=== PATIENT | male | born 1965 | race Caucasian/White ===

== ENCOUNTER 2016-07-26 19:05 | Emergency (ER) | payer BC ==
[~2016-07-26] VITALS: Ht 172.7 cm; Wt 78.0 kg
[~2016-07-26 19:05] MED LIST: MULTTAB58 PO; TRAM-10 PO; ZNTT/150 PO; [UNRECOGNIZED DRUG - OTHER] PO
[2016-07-26 19:11] VITALS: TEMP 36.5; Ht 172.7 cm; Wt 78.0 kg
[2016-07-26] MEDS ORDERED: IBUP-1451 PO (19:15)
[2016-07-26] MEDS ORDERED: OXYCODONE HCL IR 5 MG TAB (IMMEDIATE RELEASE) PO STA (19:43)
--- NOTE | 2016-07-26 20:22 | DIAGNOSTIC IMAGING REPORT ---
LEFT KNEE 3 VIEWS, LEFT TIBIA/FIBULA 2 VIEWS ROUTINE CLINICAL HISTORY: Left lateral knee pain s/p log striking leg COMPARISON STUDY: None. FINDINGS: Mild lateral soft tissue swelling at the left distal thigh/knee. No fracture or dislocation within the left knee or left lower leg. A few soft tissue calcifications medial to the distal femur may be due to old trauma. No knee effusion. No radiopaque foreign bodies. IMPRESSION: No fractures within the left knee or left lower leg Electronically signed by: Remy French M.D. 07/26/2016 8:20 PM Dictated Date/Time: 07/26/2016 8:18 PM
[2016-07-26] MEDS ORDERED: OXYC1TAB3 PO (20:32)
[2016-07-26] MEDS ORDERED: OXYCODONE IR HOME PACK PO STA (20:34)
--- NOTE | 2016-07-26 20:34 | EMERGENCY ROOM VISIT NOTE ---
History First contact with patient: 19:37 Chief Complaint: LEG PAIN,LEG INJURY Stated Complaint: I HAD A PIECE OF WOOD HIT MY LEFT LEG History of Present Illness The patient is a 50 year old male who presents to the Emergency Room via private vehicle accompanied by female with complaints of "I had a piece of wood hit my left leg". Patient states that earlier today around 5 PM he was at home stacking firewood when a piece fell off the top and fell roughly 6 feet striking him on the left lateral knee. He notes pain immediately. This did not break his pants or the skin of his leg. He rates the left lateral knee pain as a 7-8/10. Pain is worse with walking. He can axial load. He denies any numbness or tingling in the distal extremity. He took 800 mg of ibuprofen at 1 PM. Review of Systems A complete 6-point Review of Systems was discussed with the patient, with pertinent positives and negatives listed in the History of Present Illness. All remaining Review of Systems questions can be considered negative unless otherwise specified. Past Medical/Surgical History Back surgery, rotator cuff surgery Family History Cancer Social History Smoking Status: Never Smoker Housing Status: lives with family Social History: Patient lives with parents. He admits to tobacco use but denies alcohol use. Current/Historical Medications Scheduled Multiple Vitamin (Multivitamin), 1 TAB PO DAILY Scheduled PRN Ibuprofen Tab (Motrin), 800 MG PO Q8H PRN for Pain Oxycodone Ir (Roxicodone Ir), 1-2 TAB PO Q4H PRN for Pain Allergies Coded Allergies: Cephalexin (Unverified Allergy, Unknown, HIVES, 07/26/16) Physical Exam Vital Signs Date Time Temp Pulse Resp B/P Pulse Ox O2 Delivery O2 Flow Rate FiO2 07/26/16 19:11 36.5 84 20 142/93 97 Room Air Physical Exam VITAL SIGNS - Vital signs and nursing notes were reviewed. Patient is afebrile , slightly hypertensive at 142/93, non-tachycardic and is saturating well on room air at 97%. GENERAL -50-year-old male appearing his stated age who is in no acute distress. Communicates well with provider and answers questions appropriately. SKIN - Without rashes. There is mild edema of the left lateral knee. Skin overlying the left lower leg is soft, and is non-tense. HEAD - NC/AT. EXTREMITIES - No clubbing or peripheral cyanosis. No pretibial edema present. Patient is vascularly intact in the left lower extremity. There is tenderness to palpation overlying the left lateral inferior portion of the knee. Mild soft tissue swelling noted here, with tenderness to palpation overlying the lateral roberson region to the mid roberson. No evidence of compartment syndrome. The calf is easily compressible and is not tense. No bony tenderness overlying the roberson. Full range of motion of the left knee, left ankle and left foot. Full sensation intact in the left foot. Patient is vascularly intact. Skin is intact. +5/5 strength noted in UE/LE bilaterally. No left hip tenderness or left thigh tenderness. NEUROLOGIC - Sensory intact to light touch throughout. Medical Decision & Procedures ER Provider Diagnostic Interpretation: LEFT KNEE 3 VIEWS, LEFT TIBIA/FIBULA 2 VIEWS ROUTINE CLINICAL HISTORY: Left lateral knee pain s/p log striking leg COMPARISON STUDY: None. FINDINGS: Mild lateral soft tissue swelling at the left distal thigh/knee. No fracture or dislocation within the left knee or left lower leg. A few soft tissue calcifications medial to the distal femur may be due to old trauma. No knee effusion. No radiopaque foreign bodies. IMPRESSION: No fractures within the left knee or left lower leg Electronically signed by: Remy French M.D. 07/26/2016 8:20 PM Dictated Date/Time: 07/26/2016 8:18 PM Medications Administered Medications (Trade) Dose Ordered Sig/Shanice Route Start Time Stop Time Status Last Admin Dose Admin Oxycodone HCl (Roxicodone Immediate Rel Tab) 5 mg NOW STAT PO 07/26/16 19:43 07/26/16 19:44 DC 07/26/16 20:31 5 MG Medical Decision Patient was seen and evaluated as above. After obtaining a thorough history and physical examination radiographs of the left knee and left roberson were obtained secondary to subjective and objective examination findings. He was given 1, 5 mg tablet of OxyIR for his pain. He was given ice pack to the left knee. It appears that he has a contusion of the left knee but there was concern for potential underlying bone abnormality. No evidence of compartment syndrome on exam. He was able to axial load with full range of motion of the left lower extremity. Radial graph results as above. I agree with radiologist findings. Patient was verbally provided these results and educated upon today' s findings. He was educated upon management and fitted with a knee immobilizer for the left leg. He declined crutches noting that he had some at home. He is to remain nonweightbearing and to call the orthopedic surgeon first thing Thursday morning to schedule follow-up. A prescription for OxyIR was sent to his pharmacy. No red flags were identified in the [place] drug monitoring program. He is to follow-up with orthopedics regarding the likely soft tissue contusion, but he was educated upon the chance for occult fracture. He was educated upon management, and questions answered prior to discharge, and was discharged home in good condition. In the evaluation and treatment of this patient, the following differential diagnoses were considered: Patellar Fracture, Tibial Plateau Fracture, Distal Femur Fracture, ACL Injury, PCL Injury, Collateral Ligament Injury, Pes Anserine Bursitis, Maisonneuve Fracture. Impression Primary Impression: Leg pain, left Departure Information Dispostion Home / Self-Care Condition GOOD Prescriptions Oxycodone Ir (Roxicodone Ir) 5 Mg Tab 1-2 TAB PO Q4H Y for Pain, #15 TAB For Initial Treatment Prov: Vimal Mcleod PA-C 07/26/16 Referrals No Doctor, Assigned (PCP) Nikos Ramirez,Natalia.O. Patient Instructions ED Compartment Syndrome At Risk For, My [facility] Additional Instructions You have been treated in the Emergency Department for Knee Pain. You have received pain medicine in the emergency department which impairs your ability to operate a vehicle. It is illegal for you to drive after receiving these medicines. You have been prescribed Oxy IR to be used for pain control. This is a narcotic medication. You cannot drive or consume alcohol while on this medicine. This medicine should only be used for pain that cannot be controlled with over-the- counter pain medicines. Please consider taking this with a stool softener to help with constipation. For pain control, you can use the following [id number] medicines (if >12 yo): - Regular strength (325mg/tab) Tylenol (acetaminophen) 2 tabs every 4-6 hours as needed. Do not exceed 12 tablets in a 24 hour period. Avoid taking more than 4 grams (4000 mg) of Tylenol per day. This includes any other sources of acetaminophen you may take on a regular basis. - Regular strength (200 mg/tab) Advil (ibuprofen) 1-2 tabs every 4-6 hours as needed. Do not exceed a dose of 3200 mg per day. If this is a recent injury (<24 hrs), ice can be applied to the area of pain for the first 3 days to help decrease pain and inflammation. Ice massages can be performed by freezing water in a paper cup, peeling back the cup to expose the ice and then massaging over the affected area. You have been provided the number for an Orthopaedic Surgeon. You should call this number as soon as possible to establish a follow-up visit from today's Emergency Department visit. (Dr. Ramirez) Keep the knee brace in place until cleared by Orthopedics. Use the crutches to keep ALL weight off of the knee until weight bearing is tolerable. Return to the Emergency Department if your current symptoms worsen despite treatment course outlined above. Please return to the emergency department with any new/concerning symptoms.
[2016-07-26 21:08] VITALS: BP 116/86; PULSE 73; O2SAT 98
== END 2016-07-26 21:08 | disposition home or self-care (01) ==
LOC: C.EDB 19:06 → C.EDD 21:08
DX: M79.605 Pain in left leg (principal); W22.8XXA Striking against or struck by other objects, initial encounter; F17.200 Nicotine dependence, unspecified, uncomplicated

== ENCOUNTER → 2016-09-22 | Outpatient (CLI) | payer BC ==
[~2016-09-22] MED LIST changes: +IBUP-1451 PO; +KETO10TA PO; +MECL1TAB42 PO; +NAPR1TAB9 PO; +OXYC1TAB3 PO; -ZNTT/150 PO; -[UNRECOGNIZED DRUG - OTHER] PO
== END | disposition home or self-care (01) ==
LOC: C.CPL 09:42
PROVIDERS: ATTEND Orthopaedic Surgery
DX: S46.811D Strain of other muscles, fascia and tendons at shoulder and upper arm level, right arm, subsequent encounter (principal); X58.XXXA Exposure to other specified factors, initial encounter

== ENCOUNTER 2017-02-06 16:27 | Emergency (ER) | payer BC ==
[~2017-02-06] VITALS: Ht 170.2 cm; Wt 86.2 kg
[~2017-02-06 16:27] MED LIST changes: -KETO10TA PO; -MECL1TAB42 PO; -NAPR1TAB9 PO; -OXYC1TAB3 PO; -TRAM-10 PO
[2017-02-06 16:29] VITALS: Ht 170.2 cm; Wt 86.2 kg
[2017-02-06] MEDS ORDERED: NAPR1TAB9 PO (16:45)
[2017-02-06] MEDS ORDERED: KETOROLAC TROMETHAMINE 60 MG/2 ML VIAL IM STA (16:46)
[2017-02-06] MEDS ORDERED: KETO10TA PO (16:48)
[2017-02-06 17:23] VITALS: BP 132/81; PULSE 66; TEMP 36.3; O2SAT 98
--- NOTE | 2017-02-06 17:50 | EMERGENCY ROOM VISIT NOTE ---
History Report prepared by Vidhi: Reno Martin Under the Supervision of: Dr. Sung Ellis D.O. First contact with patient: 16:38 Chief Complaint: SHOULDER PAIN Stated Complaint: R SHOULDER PAIN History of Present Illness The patient is a 51 year old male who presents to the Emergency Room with complaints of constant right shoulder pain for the past three weeks. He states that the pain is going down his right arm. The patient states that he had shoulder surgery done in September, and he last saw his surgeon a week ago. He states that he is supposed to get an MRI on the , and he is currently taking Aleve for the pain. The patient additionally states that he has been having some weakness in that arm. Source of History: patient Onset: three weeks ago Position: shoulder (right) Timing: constant Associated Symptoms: + numbness Review of Systems See HPI for pertinent positives & negatives. A total of 10 systems reviewed and were otherwise negative. Past Medical & Surgical Surgical Problems: (1) H/O shoulder surgery Family History Cancer Social History Smoking Status: Never Smoker Housing Status: lives with family Occupation Status: employed Current/Historical Medications Scheduled Multiple Vitamin (Multivitamin), 1 TAB PO DAILY Naproxen (Aleve), 220 MG PO DIRECTED Scheduled PRN Ketorolac (Toradol), 10 MG PO Q6H PRN for Pain Allergies Coded Allergies: Cephalexin (Unverified Allergy, Unknown, HIVES, 07/26/16) Physical Exam Vital Signs Date Time Temp Pulse Resp B/P (MAP) Pulse Ox O2 Delivery O2 Flow Rate FiO2 02/06/17 17:23 36.3 66 20 132/81 98 02/06/17 17:07 66 20 132/81 98 Room Air 02/06/17 16:29 36.3 66 20 137/87 98 Room Air Physical Exam CONSTITUTIONAL/VITAL SIGNS: Reviewed / noted above. GENERAL: Non-toxic in appearance. INTEGUMENTARY: Warm, dry, and [place]. HEAD: Normocephalic. EYES: without scleral icterus or trauma. ENT/OROPHARYNX: clear and moist. LYMPHADENOPATHY/NECK: Is supple without lymphadenopathy or meningismus. RESPIRATORY: Lungs clear and equal. CARDIOVASCULAR: Regular rate and rhythm. GI/ABDOMEN: Soft and nontender. No organomegaly or pulsatile mass. No rebound or guarding. Normal bowel sounds. EXTREMITIES: Neurovascularly intact in the right upper extremity. Right shoulder does not reveal any increase in warmth, swelling, or visible abnormalities. Increased tenderness to palpation over the posterior aspect of the right shoulder. Warm and well perfused. BACK: No CVA tenderness. NEUROLOGICAL: Intact without focal deficits. PSYCHIATRIC: normal affect. MUSCULOSKELETAL: Normally developed with good muscle tone. Medical Decision & Procedures Medications Administered Medications (Trade) Dose Ordered Sig/Shanice Route Start Time Stop Time Status Last Admin Dose Admin Ketorolac Tromethamine (Toradol Inj) 60 mg NOW STAT IM 02/06/17 16:46 02/06/17 16:47 DC 02/06/17 16:52 60 MG ED Course 1638: Previous medical records were reviewed. The patient was evaluated in room A2. A complete history and physical examination was performed. 1646: I gave the patient Toradol Inj 60mg IM, he will be ready for discharge home. Medical Decision Differential diagnoses include: strain, infection, arthritis, chronic pain, post -surgical pain syndrome. This is a 51-year-old male who presents to the ED with a chief complaint of right shoulder pain. The patient had right shoulder surgery in September. This was done by Dr. Ramirez. He states that he had relief of the pain that he is experiencing now but then his pain came back a few weeks ago. He saw Dr. Ramirez a week ago and has had an MRI of his shoulder scheduled for the 11th of this month, 10 days from now. He came in for pain relief. He is currently taking Aleve. The patient's exam was relatively unremarkable. There is no obvious inflammatory findings or findings suggesting infection. He has no obvious neurovascular changes. The patient's symptoms were treated with Toradol IM. He was discharged on Toradol. He was to follow-up with his surgeon. Medication Reconcilliation Current Medication List: was personally reviewed by me Blood Pressure Screening Patient's blood pressure: Normal blood pressure Impression Primary Impression: Shoulder pain, right Scribe Attestation The scribe's documentation has been prepared under my direction and personally reviewed by me in its entirety. I confirm that the note above accurately reflects all work, treatment, procedures, and medical decision making performed by me. Departure Information Dispostion Home / Self-Care Prescriptions Ketorolac (Toradol) 10 Mg Tab 10 MG PO Q6H Y for Pain, #20 TAB Prov: Sung Ellis D.O. 02/06/17 Referrals No Doctor, Assigned (PCP) Forms HOME CARE DOCUMENTATION FORM, IMPORTANT VISIT INFORMATION Patient Instructions My [facility] Additional Instructions Toradol as prescribed for pain. Follow-up with your doctor for recheck.
== END 2017-02-06 17:24 | disposition home or self-care (01) ==
LOC: C.EDB 16:28 → C.EDA 17:24
DX: M25.511 Pain in right shoulder (principal); Z80.9 Family history of malignant neoplasm, unspecified

== ENCOUNTER 2017-08-02 10:35 | Emergency (ER) | payer BC ==
[~2017-08-02] VITALS: Ht 172.7 cm; Wt 76.8 kg
[~2017-08-02 10:35] MED LIST changes: -IBUP-1451 PO; -MULTTAB58 PO; +TRAM-10 PO
[2017-08-02 10:54] VITALS: TEMP 36.6; Ht 172.7 cm; Wt 76.8 kg
[2017-08-02] MEDS ORDERED: SODIUM CHLORIDE 0.9% 1000ML 1,000 ML IV STA (11:20)
--- NOTE | 2017-08-02 11:26 | EMERGENCY ROOM VISIT NOTE ---
History First contact with patient: 11:10 Chief Complaint: DIZZY Stated Complaint: LIGHT HEADED Nursing Triage Summary: around 1030 patient states he was working at [employer] and became lightheaded. "They checked my blood pressure and that it was high and they thought I should come in and get checked out." History of Present Illness The patient is a 51 year old male who presents to the Emergency Room with complaints of dizziness which occurred at work. 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 He states he told nursing staff who checked his blood pressure and reported an elevated blood pressure. The patient states he was told at that point to come and be evaluated. 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 The incident occurred at approximately 1030, the patient states he is feeling significantly better, however slightly dizzy at this time. He does not have any history of anything similar happening in the past. He does have some chronic right shoulder pain which has been flaring up recently. He denies any associated symptoms including chest pain, dyspnea, headache, nausea, vomiting, vertigo, tinnitus, recent illness, upper respiratory infection, diarrhea, or constipation. He does not report a history of hypertension. Review of Systems A complete 10 point review of systems was reviewed with the patient with pertinent positives and negatives as per history of present illness. All else were negative. Past Medical/Surgical History Surgical Problems: (1) H/O shoulder surgery Family History Cancer Social History Smoking Status: Never Smoker Housing Status: lives with family Occupation Status: employed Current/Historical Medications Scheduled Multivitamin (Multivitamin), 1 TAB PO DAILY Scheduled PRN Ibuprofen (Ibuprofen), 800 MG PO UD PRN for Pain Physical Exam Vital Signs Date Time Temp Pulse Resp B/P (MAP) Pulse Ox O2 Delivery O2 Flow Rate FiO2 08/02/17 12:47 68 128/80 98 Room Air 74 125/92 85 137/98 08/02/17 11:33 73 08/02/17 11:04 75 18 128/97 95 Room Air 08/02/17 10:54 36.6 71 20 152/89 99 Room Air Physical Exam VITALS: Vitals are noted on the nurse's note and reviewed by myself. Vital signs stable. GENERAL: This is a 51-year-old white male, in no acute distress, nondiaphoretic , well-developed well-nourished. SKIN: The skin was without rashes, erythema, edema, or bruising. There is no tenting of the skin. Capillary reflex less than 2 seconds. HEAD: Normocephalic atraumatic. EARS: External auditory canals clear, tympanic membranes pearly dorado without erythema or effusion bilaterally. EYES: Pupils equal round and reactive to light and accommodation. Conjunctivae without injection, sclerae without icterus. Extraocular movements intact. NOSE: Patent, turbinates without inflammation or discharge. No sinus tenderness. MOUTH: Mucous membranes moist. Tonsils are not enlarged. Pharynx without erythema or exudate. Uvula midline. Airway patent. Tongue does not deviate. NECK: Supple without nuchal rigidity. No lymphadenopathy. No thyromegaly. Cervical spine is nontender. No JVD. HEART: Regular rate and rhythm without murmurs gallops or rubs. LUNGS: Clear to auscultation bilaterally without wheezes, rales or rhonchi. No dullness to percussion. No retractions or accessory muscle use. ABDOMEN: Positive bowel sounds x 4. Normal tympanic percussion. Soft, nontender, without masses or organomegaly. Heart sign negative. No guarding or rebound tenderness. No CVA tenderness bilaterally. MUSCULOSKELETAL: No muscle atrophy, erythema, or edema noted. Full range of motion without joint tenderness in all extremities. No tenderness to palpation. Normal gait. Strength 5/5 throughout. NEURO: Patient was alert and oriented to person place and time. Cerebellar function in tact. Normal sensation to light and sharp touch. Deep tendon reflexes 2+ throughout. No focal neurological deficits. Medical Decision & Procedures ER Provider Diagnostic Interpretation: CHEST 2 VIEWS ROUTINE CLINICAL HISTORY: dizziness COMPARISON STUDY: 07/02/2012 FINDINGS: The cardiac and mediastinal contours are normal. There is no evidence of focal pulmonary consolidation. There is no evidence of failure. No pleural effusions are visualized.[ IMPRESSION: No active disease in the chest. Electronically signed by: Toñito Magallanes M.D. 08/02/2017 11:53 AM Dictated Date/Time: 08/02/2017 11:52 AM Laboratory Results 08/02/17 11:30 Red Blood Count 4.81, Mean Corpuscular Volume 87.3, Mean Corpuscular Hemoglobin 30.6, Mean Corpuscular Hemoglobin Concent 35.0, Mean Platelet Volume 9.9, Neutrophils (%) (Auto) 74.7, Lymphocytes (%) (Auto) 17.5, Monocytes (%) (Auto) 6.4, Eosinophils (%) (Auto) 0.9, Basophils (%) (Auto) 0.1, Neutrophils # (Auto) 5.23, Lymphocytes # (Auto) 1.23, Monocytes # (Auto) 0.45, Eosinophils # (Auto) 0.06, Basophils # (Auto) 0.01 08/02/17 11:30 Test 08/02/17 11:30 White Blood Count 7.01 K/uL (4.8-10.8) Red Blood Count 4.81 M/uL (4.7-6.1) Hemoglobin 14.7 g/dL (14.0-18.0) Hematocrit 42.0 % (42-52) Mean Corpuscular Volume 87.3 fL (80-100) Mean Corpuscular Hemoglobin 30.6 pg (25-34) Mean Corpuscular Hemoglobin Concent 35.0 g/dl (32-36) Platelet Count 217 K/uL (130-400) Mean Platelet Volume 9.9 fL (7.4-10.4) Neutrophils (%) (Auto) 74.7 % Lymphocytes (%) (Auto) 17.5 % Monocytes (%) (Auto) 6.4 % Eosinophils (%) (Auto) 0.9 % Basophils (%) (Auto) 0.1 % Neutrophils # (Auto) 5.23 K/uL (1.4-6.5) Lymphocytes # (Auto) 1.23 K/uL (1.2-3.4) Monocytes # (Auto) 0.45 K/uL (0.11-0.59) Eosinophils # (Auto) 0.06 K/uL (0-0.5) Basophils # (Auto) 0.01 K/uL (0-0.2) RDW Standard Deviation 42.5 fL (36.4-46.3) RDW Coefficient of Variation 13.3 % (11.5-14.5) Immature Granulocyte % (Auto) 0.4 % Immature Granulocyte # (Auto) 0.03 K/uL (0.00-0.02) Prothrombin Time 9.9 SECONDS (9.0-12.0) Prothromb Time International Ratio 0.9 (0.9-1.1) Activated Partial Thromboplast Time 24.0 SECONDS (21.0-31.0) Partial Thromboplastin Ratio 0.9 Anion Gap 7.0 mmol/L (3-11) Est Creatinine Clear Calc Drug Dose 107.0 ml/min Estimated GFR () 120.5 Estimated GFR (Non- 104.0 BUN/Creatinine Ratio 8.2 (10-20) Calcium Level 8.9 mg/dl (8.5-10.1) Total Bilirubin 0.3 mg/dl (0.2-1) Aspartate Amino Transf (AST/SGOT) 28 U/L (15-37) Alanine Aminotransferase (ALT/SGPT) 35 U/L (12-78) Alkaline Phosphatase 64 U/L (45-117) Total Protein 6.9 gm/dl (6.4-8.2) Albumin 4.1 gm/dl (3.4-5.0) Globulin 2.8 gm/dl (2.5-4.0) Albumin/Globulin Ratio 1.5 (0.9-2) Medications Administered Medications (Trade) Dose Ordered Sig/Shanice Route Start Time Stop Time Status Last Admin Dose Admin Sodium Chloride 1,000 ml @ 999 mls/hr Q1H1M STAT IV 08/02/17 11:20 08/02/17 12:20 DC 08/02/17 11:30 999 MLS/HR ECG Per My Interpretation Indication: weakness Rate (beats per minute): 79 Rhythm: normal sinus Findings: no acute ischemic change, no ectopy Comparison ECG Date: no prior available ED Course The patient was seen and evaluated as above. IV access obtained, labs drawn. EKG ordered and performed. Chest x-ray performed. This was reviewed by myself and radiologist as above. The patient was given 1 L normal saline solution bolus for his symptoms. The patient was reassessed and is feeling better. Orthostatic vital signs performed. I discussed the case with Dr. Hayden. Discharge instructions reviewed, and the patient was discharged home in good condition. 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 The patient states he has had similar symptoms in the past, and negative workups have always been performed. He for any cardiac history. He states his blood pressure was checked at [facility] and noted to be slightly elevated approximately 160/90, so he was encouraged to come to the emergency department for evaluation. While here in the emergency department, the patient is feeling better, however continues to have some degree of dizziness. He was given 1 L normal saline solution and workup was performed as above. No significant lab, EKG, or imaging abnormalities noted. The patient's orthostatic vital signs were negative for significant acute change. The patient's symptoms did improve significantly after the saline bolus. I suspect a slight degree of dehydration and possible orthostatic hypotension/vasovagal event as the cause of the patient 's symptoms. He was encouraged to follow up outpatient with his primary care provider. He was encouraged to get plenty of rest and drink plenty of fluids for the rest of the day today. All questions answered to the patient's satisfaction. Etiologies such as vasovagal event, infection, hypoglycemia, electrolyte abnormalities, cardiac sources, intracerebral event, toxicologic, neurologic, as well as others were entertained. Medication Reconcilliation Current Medication List: was personally reviewed by me Blood Pressure Screening Patient's blood pressure: Normal blood pressure Impression Primary Impression: Dizziness Departure Information Dispostion Home / Self-Care Condition GOOD Referrals Bernard Sousa, D.O. (PCP) Patient Instructions ED Dizziness AJNE, [facility] Additional Instructions He was seen and evaluated in the emergency department today for dizziness and lightheadedness. Labs, imaging, and EKG did not reveal any abnormal findings or obvious cause for your symptoms. Your symptoms did improve with IV fluids. Please stay well hydrated, as it is possible if you are slightly dehydrated that your symptoms were worse. Please get plenty of rest today. You may return to work tomorrow. Follow-up with your PCP in 1-2 days for re-evaluation of your symptoms. You may use OTC Meclizine to help with ongoing dizziness. Return to the ED for any chest pain, passing out, nausea, vomiting, fever, neck pain, or other concerning symptoms. Work Instructions Return To Work: 1 day Specific Date: 08/03/17
[2017-08-02 11:39] LABS: BASO % 0.1 %; BASO ABS # 0.01 K/uL (0-0.2); EOS % 0.9 %; EOS ABS # 0.06 K/uL (0-0.5); HEMOGLOBIN 14.7 g/dL (14.0-18.0); IG# 0.03 K/uL (0.00-0.02); LYMPH % 17.5 %; LYMPH ABS # 1.23 K/uL (1.2-3.4); MEAN CELL VOLUME 87.3 fL (80-100); MEAN CORPUSCULAR HEMOGLOBIN 30.6 pg (25-34); MEAN PLATELET VOLUME 9.9 fL (7.4-10.4); MONO % 6.4 %; MONO ABS # 0.45 K/uL (0.11-0.59); NEUT % 74.7 %; NEUT ABS # 5.23 K/uL (1.4-6.5); PLATELET COUNT 217 K/uL (130-400); RED CELL DISTRIBUTION WIDTH CV 13.3 % (11.5-14.5); RED CELL DISTRIBUTION WIDTH SD 42.5 fL (36.4-46.3); WHITE BLOOD COUNT 7.01 K/uL (4.8-10.8)
[2017-08-02 11:49] LABS: INR 0.9 (0.9-1.1)
--- NOTE | 2017-08-02 11:54 | DIAGNOSTIC IMAGING REPORT ---
CHEST 2 VIEWS ROUTINE CLINICAL HISTORY: dizziness COMPARISON STUDY: 07/02/2012 FINDINGS: The cardiac and mediastinal contours are normal. There is no evidence of focal pulmonary consolidation. There is no evidence of failure. No pleural effusions are visualized.[ IMPRESSION: No active disease in the chest. Electronically signed by: Toñito Magallanes M.D. 08/02/2017 11:53 AM Dictated Date/Time: 08/02/2017 11:52 AM
[2017-08-02 12:00] LABS: ALBUMIN 4.1 gm/dl (3.4-5.0); CALCIUM 8.9 mg/dl (8.5-10.1); CREATININE 0.79 mg/dl (0.60-1.40); POTASSIUM 3.5 mmol/L (3.5-5.1)
[2017-08-02] MEDS ORDERED: IBUP1CAP9 PO (12:00)
[2017-08-02] MEDS ORDERED: MULT-506 PO (12:00)
[2017-08-02 12:03] LABS: TOTAL PROTEIN 6.9 gm/dl (6.4-8.2)
[2017-08-02 12:47] VITALS: BP 137/98; PULSE 85; O2SAT 98
== END 2017-08-02 13:15 | disposition home or self-care (01) ==
LOC: C.EDB 10:35 → C.EDA 13:15
DX: R42 Dizziness and giddiness (principal)

== ENCOUNTER 2017-09-10 18:50 | Emergency (ER) | payer BC ==
[~2017-09-10] VITALS: Ht 167.6 cm; Wt 77.0 kg
[~2017-09-10 18:50] MED LIST changes: +IBUP1CAP9 PO; +MULT-506 PO; -TRAM-10 PO
[2017-09-10 19:18] VITALS: Ht 167.6 cm; Wt 77.0 kg
[2017-09-10] MEDS ORDERED: ACETAMINOPHEN 500 MG TAB PO STA (19:29)
[2017-09-10] MEDS ORDERED: ONDANSETRON INJ 2 MG/ML 2 ML VIAL IV STA (19:29)
[2017-09-10] MEDS ORDERED: SODIUM CHLORIDE 0.9% 1000ML 1,000 ML IV STA (19:29)
--- NOTE | 2017-09-10 19:33 | EMERGENCY ROOM VISIT NOTE ---
History Report prepared by Vidhi: Deepti Hurley Under the Supervision of: Dr. Ramon Allison D.O. First contact with patient: 19:23 Chief Complaint: FEVER Stated Complaint: FEVER 102.5, COUGH, POSSIBLE FLU History of Present Illness The patient is a 51 year old male who presents to the Emergency Room with complaints of a fever today. Per family, the patient was febrile at 101.5 and 102.5. Per family, the patient has not been feeling well since yesterday. The patient states that he took Robitussin at 1600 today. He also reports having general pain, a cough, and some vomiting, but denies having rashes and coughing up blood. The patient states that he got the flu shot this year. Source of History: patient, family Onset: today Position: other (global) Quality: other (fever) Associated Symptoms: + cough, + vomiting, No rash Note: additional symptom: general pain denies: coughing up blood Review of Systems See HPI for pertinent positives & negatives. A total of 10 systems reviewed and were otherwise negative. Past Medical & Surgical Surgical Problems: (1) H/O shoulder surgery Family History Cancer Social History Smoking Status: Never Smoker Marital Status: Housing Status: lives with family Occupation Status: employed Current/Historical Medications Scheduled Multivitamin (Multivitamin), 1 TAB PO DAILY Oseltamivir (Tamiflu), 75 MG PO BID Scheduled PRN Ibuprofen (Ibuprofen), 800 MG PO Q8 PRN for Pain Allergies Coded Allergies: Cephalexin (Verified Allergy, Unknown, HIVES, 08/02/17) Physical Exam Vital Signs Date Time Temp Pulse Resp B/P (MAP) Pulse Ox O2 Delivery O2 Flow Rate FiO2 09/10/17 21:36 37.1 101 18 119/72 93 09/10/17 21:08 37.1 101 18 119/72 93 Room Air 09/10/17 19:53 103 15 141/89 95 Room Air 09/10/17 19:52 105 09/10/17 19:45 Room Air 09/10/17 19:18 37.4 120 24 128/79 97 Room Air Physical Exam GENERAL: Patient is awake, alert, and in no acute distress. Patient appears uncomfortable and very anxious. EYES: The conjunctivae are clear. The pupils are round and reactive. EARS, NOSE, MOUTH AND THROAT: The nose is without any evidence of any deformity. Mucous membranes are moist tongue is midline. Clear rhinorrhea noted bilaterally. NECK: The neck is nontender and supple. RESPIRATORY: Diminished in right lung field. No tachypnea or conversational dyspnea noted. CARDIOVASCULAR: Tachycardic rate and regular rhythm noted there no murmurs rubs or gallops normal S1 normal S2 GASTROINTESTINAL: The abdomen is soft. Bowel sounds are present in all quadrants. Abdomen is nontender MUSCULOSKELETAL/EXTREMITIES: There is no evidence of gross deformity full range of motion is noted in the hips and shoulders SKIN: There is no obvious evidence of any rash. There are no petechiae, pallor or cyanosis noted. NEUROLOGIC: Patient is awake alert and oriented x3 Medical Decision & Procedures ER Provider Diagnostic Interpretation: Radiology results as stated below per my review and radiologist interpretation: CHEST ONE VIEW PORTABLE CLINICAL HISTORY: 51 years-old Male presenting with EVALUATE RESPIRATORY DISTRESS.DYSPNEA. TECHNIQUE: Portable upright AP view of the chest was obtained. COMPARISON: 08/02/2017. FINDINGS: Cardiomediastinal silhouette normal. Lungs and pleural spaces clear. Osseous structures normal. Upper abdomen normal. IMPRESSION: 1. No acute cardiopulmonary disease. Electronically signed by: Fadi Dobson M.D. 09/10/2017 7:48 PM Dictated Date/Time: 09/10/2017 7:47 PM Laboratory Results 09/10/17 19:40 Red Blood Count 4.84, Mean Corpuscular Volume 85.5, Mean Corpuscular Hemoglobin 30.0, Mean Corpuscular Hemoglobin Concent 35.0, Mean Platelet Volume 10.4, Neutrophils (%) (Auto) 78.2, Lymphocytes (%) (Auto) 8.0, Monocytes (%) (Auto) 13.4, Eosinophils (%) (Auto) 0.3, Basophils (%) (Auto) 0.0, Neutrophils # (Auto ) 5.89, Lymphocytes # (Auto) 0.60, Monocytes # (Auto) 1.01, Eosinophils # (Auto ) 0.02, Basophils # (Auto) 0.00 09/10/17 19:40 Test 09/10/17 19:40 White Blood Count 7.53 K/uL (4.8-10.8) Red Blood Count 4.84 M/uL (4.7-6.1) Hemoglobin 14.5 g/dL (14.0-18.0) Hematocrit 41.4 % (42-52) Mean Corpuscular Volume 85.5 fL (80-100) Mean Corpuscular Hemoglobin 30.0 pg (25-34) Mean Corpuscular Hemoglobin Concent 35.0 g/dl (32-36) Platelet Count 190 K/uL (130-400) Mean Platelet Volume 10.4 fL (7.4-10.4) Neutrophils (%) (Auto) 78.2 % Lymphocytes (%) (Auto) 8.0 % Monocytes (%) (Auto) 13.4 % Eosinophils (%) (Auto) 0.3 % Basophils (%) (Auto) 0.0 % Neutrophils # (Auto) 5.89 K/uL (1.4-6.5) Lymphocytes # (Auto) 0.60 K/uL (1.2-3.4) Monocytes # (Auto) 1.01 K/uL (0.11-0.59) Eosinophils # (Auto) 0.02 K/uL (0-0.5) Basophils # (Auto) 0.00 K/uL (0-0.2) RDW Standard Deviation 41.8 fL (36.4-46.3) RDW Coefficient of Variation 13.3 % (11.5-14.5) Immature Granulocyte % (Auto) 0.1 % Immature Granulocyte # (Auto) 0.01 K/uL (0.00-0.02) Anion Gap 11.0 mmol/L (3-11) Est Creatinine Clear Calc Drug Dose 106.7 ml/min Estimated GFR () 119.9 Estimated GFR (Non- 103.4 BUN/Creatinine Ratio 9.7 (10-20) Calcium Level 8.8 mg/dl (8.5-10.1) Total Bilirubin 0.5 mg/dl (0.2-1) Aspartate Amino Transf (AST/SGOT) 28 U/L (15-37) Alanine Aminotransferase (ALT/SGPT) 35 U/L (12-78) Alkaline Phosphatase 88 U/L (45-117) Troponin I < 0.015 ng/ml (0-0.045) Total Protein 7.5 gm/dl (6.4-8.2) Albumin 4.1 gm/dl (3.4-5.0) Globulin 3.4 gm/dl (2.5-4.0) Albumin/Globulin Ratio 1.2 (0.9-2) Influenza Type A (RT-PCR) POS for Influ A (NEG) Influenza Type B (RT-PCR) Neg for Influ B (NEG) Laboratory results per my review. Medications Administered Medications (Trade) Dose Ordered Sig/Shanice Route Start Time Stop Time Status Last Admin Dose Admin Acetaminophen (Tylenol Tab) 1,000 mg NOW STAT PO 09/10/17 19:29 09/10/17 19:31 DC 09/10/17 19:47 1,000 MG Sodium Chloride 1,000 ml @ 999 mls/hr Q1H1M STAT IV 09/10/17 19:29 09/10/17 20:29 DC 09/10/17 19:46 999 MLS/HR Ondansetron HCl (Zofran Inj) 4 mg NOW STAT IV 09/10/17 19:29 09/10/17 19:31 DC 09/10/17 19:47 4 MG Oseltamivir Phosphate (Tamiflu Cap) 75 mg NOW STAT PO 09/10/17 20:34 09/10/17 20:35 DC 09/10/17 21:07 75 MG ECG Per My Interpretation Indication: vomiting Rate (beats per minute): 102 Rhythm: sinus tachycardia Findings: no ectopy, other (no ST segment abnormalities) Comparison ECG Date: increased rate, otherwise no change from 08/02/17 ED Course 1926: The patient was evaluated in room C7. A complete history and physical examination were performed. 1928: Ordered Zofran Inj 4 mg IV, Sodium Chloride 1,000 ml @ 999 mls/hr IV, Tylenol Tab 1,000 mg PO. 2033: Ordered Tamiflu Cap 75 mg PO. 2100: Upon reevaluation, the patient is resting and doing better. I discussed the results and treatment plan with him. He verbalized agreement of the treatment plan. He was discharged home. Medical Decision Differential diagnosis: Etiologies such as viral syndrome, otitis, pharyngitis, pneumonia, influenza, meningitis, urinary tract infection, sepsis, bacteremia, as well as others were entertained. Nursing notes reviewed. The patient is a 51-year-old male who presented to the emergency department for an evaluation of an acute febrile illness. The patient had a history and physical exam consistent with the flu. His flu swab was positive. I do feel this explains his symptoms. I discussed the patient's laboratory and radiographic studies with him. He was encouraged to rest and avoid any strenuous activity. He was also encouraged to drink plenty clear liquids and continue all medications as prescribed. He was started on Tamiflu. He was also found to have hyponatremia. This does not appear to be new. He has had low sodium in the past. I encouraged him to have his laboratory studies rechecked with his primary care physician when this acute illness was resolved but I also recommended that he return to the emergency department immediately if symptoms change worsen or the need arises. Medication Reconcilliation Current Medication List: was personally reviewed by me Blood Pressure Screening Patient's blood pressure: Normal blood pressure Impression Primary Impression: Fever Additional Impressions: Influenza Hyponatremia Scribe Attestation The scribe's documentation has been prepared under my direction and personally reviewed by me in its entirety. I confirm that the note above accurately reflects all work, treatment, procedures, and medical decision making performed by me. Departure Information Dispostion Home / Self-Care Prescriptions Oseltamivir (Tamiflu) 75 Mg Cap 75 MG PO BID, #10 CAP Prov: Ramon Allison, DO 09/10/17 Referrals Bernard Sousa D.OMariam (PCP) Forms HOME CARE DOCUMENTATION FORM, IMPORTANT VISIT INFORMATION Patient Instructions ED Fever Control, ED Flu, [facility] Additional Instructions Continue drinking plenty clear liquids. Your sodium was found to be low in the emergency department today. I would recommend a recheck with your family doctor next week when her symptoms have improved. Continue using Tylenol and Motrin as directed for fever and body aches. Problem Qualifiers Primary Impression: Fever Fever type: unspecified Qualified Codes: R50.9 - Fever, unspecified
[2017-09-10 19:48] LABS: EOS % 0.3 %; EOS ABS # 0.02 K/uL (0-0.5); HEMATOCRIT 41.4 % (42-52); HEMOGLOBIN 14.5 g/dL (14.0-18.0); IG# 0.01 K/uL (0.00-0.02); MEAN CELL VOLUME 85.5 fL (80-100); MEAN PLATELET VOLUME 10.4 fL (7.4-10.4); MONO % 13.4 %; MONO ABS # 1.01 K/uL (0.11-0.59); NEUT % 78.2 %; NEUT ABS # 5.89 K/uL (1.4-6.5); PLATELET COUNT 190 K/uL (130-400); RED CELL DISTRIBUTION WIDTH CV 13.3 % (11.5-14.5); RED CELL DISTRIBUTION WIDTH SD 41.8 fL (36.4-46.3); WHITE BLOOD COUNT 7.53 K/uL (4.8-10.8)
--- NOTE | 2017-09-10 19:49 | DIAGNOSTIC IMAGING REPORT ---
CHEST ONE VIEW PORTABLE CLINICAL HISTORY: 51 years-old Male presenting with EVALUATE RESPIRATORY DISTRESS.DYSPNEA. TECHNIQUE: Portable upright AP view of the chest was obtained. COMPARISON: 08/02/2017. FINDINGS: Cardiomediastinal silhouette normal. Lungs and pleural spaces clear. Osseous structures normal. Upper abdomen normal. IMPRESSION: 1. No acute cardiopulmonary disease. Electronically signed by: Fadi Dobson M.D. 09/10/2017 7:48 PM Dictated Date/Time: 09/10/2017 7:47 PM
[2017-09-10 20:13] LABS: ALBUMIN 4.1 gm/dl (3.4-5.0); ALT/SGPT 35 U/L (12-78); BLOOD UREA NITROGEN 8 mg/dl (7-18); CALCIUM 8.8 mg/dl (8.5-10.1); CARBON DIOXIDE 22 mmol/L (21-32); GLUCOSE 110 mg/dl (70-99); POTASSIUM 3.8 mmol/L (3.5-5.1); SODIUM 126 mmol/L (136-145)
[2017-09-10 20:17] LABS: ALKALINE PHOSPHATASE 88 U/L (45-117); AST/SGOT 28 U/L (15-37); TOTAL PROTEIN 7.5 gm/dl (6.4-8.2)
[2017-09-10 20:33] LABS: INFLUENZA A PCR POS for Influ A (NEG); INFLUENZA B PCR Neg for Influ B (NEG)
[2017-09-10] MEDS ORDERED: OSELTAMIVIR PHOSPHATE 75 MG CAP PO STA (20:34)
[2017-09-10] MEDS ORDERED: OSEL75CA12 PO (21:24)
[2017-09-10 21:36] VITALS: BP 119/72; PULSE 101; TEMP 37.1; O2SAT 93
== END 2017-09-10 21:38 | disposition home or self-care (01) ==
LOC: C.EDB 18:52 → C.EDC 21:38
DX: J10.1 Influenza due to other identified influenza virus with other respiratory manifestations (principal); E87.1 Hypo-osmolality and hyponatremia; Z80.9 Family history of malignant neoplasm, unspecified; Z88.1 Allergy status to other antibiotic agents

== ENCOUNTER 2019-10-14 20:23 | Observation (INO) ==
[2019-10-14] MEDS ORDERED: ASPIRIN CHEW 324 MG PO STA (20:32)
--- NOTE | 2019-10-14 20:47 | XRay Report ---
XR chest 1V portable CLINICAL HISTORY: Chest Pain dyspnea COMPARISON STUDY: 09/10/2017 FINDINGS: The bones soft tissues and hemidiaphragms are normal. The cardiomediastinal silhouette is n ormal. The lungs are clear. The pulmonary vasculature is normal. IMPRESSION: Negative chest. ACT 112: Negative or not required by law. The above report was generated using voice recognition software. It may contain grammatical, syntax or spelling errors. Electronically signed by: Isaac Morataya M.D. 10/14/2019 8:46 PM
--- NOTE | 2019-10-14 21:01 | Emergency Department Note ---
Impression & Plan Chest pain, Acute left-sided weakness, Facial droop ED Provider Note NAME: TRANG SCHAEFER AGE: 53 SEX: M : 1965 ARRIVES VIA: Walk-In INFORMANT: Patient, ED PROVIDER(S): Ramon Allison DO CHIEF COMPLAINT: Chest pain HPI: The patient is a 53-year-old male who presented to the emergency department for an evaluation of chest pain. The patient has been noticing chest discomfort on the left side of his chest. He also notices some tingling in his left arm and pain behind his left scapula. He states that this pain is been ongoing for the last 3 days. It is worsened with movement but not necessarily worsened with exertion. He states that he is never had pain like this before. He has not been seen by his primary care physician for this discomfort. The patient states that the pain is sometimes worsened with moving his left arm as well. He denies having any nausea or vomiting. He states he has no specific shortness of breath. He denies any swelling in the lower extremities. ROS: See above HPI for pertinent positives & negatives. A total of 10 systems reviewed and were otherwise negative. PAST MEDICAL HISTORY: See Below PAST SURGICAL HISTORY: See Below FAMILY HISTORY: See Below SOCIAL HISTORY: See Below HOME MEDICATIONS: See Below ALLERGIES: See Below VITALS: See Below PHYSICAL EXAMINATION: GENERAL: Patient is awake alert in no acute distress patient is resting comfortably and showing no signs of anxiety EYES: The conjunctivae are clear. The pupils are round and reactive. EARS, NOSE, MOUTH AND THROAT: The nose is without any evidence of any deformity. Mucous membranes are moist. Tongue is midline. NECK: The neck is nontender and supple. RESPIRATORY: Normal respiratory effort is noted there is no evidence of wheezing rhonchi or rales CARDIOVASCULAR: Regular rate and rhythm noted there no murmurs rubs or gallops normal S1 normal S2. GASTROINTESTINAL: The abdomen is soft. Abdomen is nontender. MUSCULOSKELETAL/EXTREMITIES: There is no evidence of gross deformity full range of motion is noted in the hips and shoulders. SKIN: There is no obvious evidence of any rash. There are no petechiae, pallor or cyanosis noted. NEUROLOGIC: Patient is awake alert and oriented x3. The patient has subjective left-sided tingling in his upper and lower extremity. Strength is symmetric and there is no drift. The patient does have a left-sided facial droop mostly invo lving the left side of the mouth. There is some forehead sparing noted. MEDICAL DECISION MAKING: The patient is a 53-year-old male who presented to the emergency department for an evaluation of chest pain. The patient complained of mostly left-sided chest pain which went to his arm. He also complains of numbness and tingling in his left arm and left leg. The patient was also found to have a left-sided facial droop with forehead sparing. His presentation was difficult to ascertain if this was more of a vascular problem or a primary COMMERCIAL ILLUSTRATOR problem. The patient's EKG did not show any acute ischemic changes compared to previous. The patient's troponin was negative despite having ongoing symptoms for 3 days. The patient was not felt to be a TPA candidate as his symptoms have been ongoing for [address] did not show any acute disease. CT angiography did not show any acute occlusion but did show some minor and chronic vascular issues. CT the chest showed no signs of dissection or pulmonary embolism. The patient was treated with aspirin in the emergency department. I discussed the patient's laboratory and radiographic studies with him. Given his ongoing symptoms I also discussed his case with the on-call [facility] hospitalist. They have agreed to evaluate the patient in the emergency department for further management dispos ition. Triage Nursing notes reviewed. Prior medical records reviewed Vital Signs: reviewed and remarkable for no significant abnormalities Differential diagnosis: Cardiac ischemia, aortic dissection, pulmonary embolism, pneumothorax, pneumonia, pericarditis, myocarditis, esophageal rupture, GERD, cholecystitis, pancreatitis, musculoskeletal, as well as other pathologies. ER treatment provided: See below Diagnostics interpreted by me: ECG: EKG was obtained in the emergency department. My interpretation is normal sinus rhythm at 75 bpm. There is no ectopy. There was inferior ST abnormalities noted. This was compared to a tracing from September 10, 2017. There is no specific change noted. 2209: The patient developed further chest pain. A repeat EKG was obtained. It did reveal normal sinus rhythm at 82 bpm. There is no ectopy. Inferior ST abnormalities were appreciated. There is no significant change compared to the earlier tracing. Cardiac Monitoring: An order was placed for continuous cardiac monitoring. The monitor shows a rate of 70 with sinus rhythm. Laboratory studies: As stated above and show below. Imaging studies: See below Consultation(s): 2235: I discussed this case with Dr. Miller who is on-call for the [facility] hospitalist group. He is agreed to evaluate the patient in the emergency department for further management. Past Med/Surg History Medical History No significant past medical history Surgical History History of spinal fusion Family History Other Family history non-contributory Social History Preferred Language: Sammarinese Communication Ability: Effective Smt Machine Operator Required: No Beliefs That Will Affect Care: None marital status: Current Living Situation: Spouse and Parent Current Living Situation Comment: , mom and dad current occupational status: employed Feels Safe at Home: Yes Safety Concerns: Feels Safe At This Time Smoking Status: Never smoker Hx Alcohol Use: No Hx Substance Use: No Allergies Allergies Allergy/AdvReac Type Severity Reaction Status Date / Time cephalexin Allergy Unknown HIVES Verified 10/14/19 21:01 Home Meds Home Medications Medication Instructions Recorded Confirmed multivitamin 1 tab PO QAM 05/13/18 10/14/19 ascorbic acid (vitamin C) [Vitamin 1 g PO DAILY 10/14/19 10/14/19 C] cyclobenzaprine 5 mg PO TID PRN 10/14/19 10/14/19 gabapentin [Neurontin] 400 mg PO QID 10/14/19 10/14/19 mometasone 2 spray INTRANASAL DAILY 10/14/19 10/14/19 Results & Data (ED) Vital Signs Vital Signs - 24 hr 10/14/19 20:25 10/14/19 20:36 10/14/19 20:55 Temperature 36.5 C Temperature Source Oral Pulse Rate 67 Pulse Rate [Apical] 68 Pulse Rate from SpO2 Sensor Pulse Rhythm [Apical] Regular Respiratory Rate 20 18 Respiratory Effort / Characteristics Non-Labored Spontaneous Respiratory Depth Normal Blood Pressure 130/85 Blood Pressure [Left Arm] 106/76 Blood Pressure Mean 100 Blood Pressure Mean [Left Arm] 86 Pulse Oximetry 98 99 Oxygen Delivery Method Room Air Room Air Room Air Sepsis Recent Fever Within 48 Hours No Sepsis New/Unexplained Change in Mental Status No Sepsis Action Taken by Nursing No Action Required 10/14/19 21:00 10/14/19 21:19 10/14/19 22:03 Temperature Temperature Source Pulse Rate 68 70 Pulse Rate [Apical] Pulse Rate from SpO2 Sensor 67 80 Pulse Rhythm [Apical] Respiratory Rate 19 18 Respiratory Effort / Characteristics Respiratory Depth Blood Pressure 130/86 141/102 H 145/89 H Blood Pressure [Left Arm] Blood Pressure Mean 97 116 102 Blood Pressure Mean [Left Arm] Pulse Oximetry 98 100 Oxygen Delivery Method Room Air Sepsis Recent Fever Within 48 Hours Sepsis New/Unexplained Change in Mental Status Sepsis Action Taken by Nursing 10/14/19 22:30 10/14/19 22:41 10/14/19 23:00 Temperature Temperature Source Pulse Rate 68 75 70 Pulse Rate [Apical] Pulse Rate from SpO2 Sensor 69 69 Pulse Rhythm [Apical] Respiratory Rate 14 13 16 Respiratory Effort / Characteristics Respiratory Depth Blood Pressure 128/89 134/95 129/94 Blood Pressure [Left Arm] Blood Pressure Mean 94 103 99 Blood Pressure Mean [Left Arm] Pulse Oximetry 98 98 Oxygen Delivery Method Room Air Sepsis Recent Fever Within 48 Hours Sepsis New/Unexplained Change in Mental Status Sepsis Action Taken by Long-Term Medications Current Medication List: was personally reviewed by me Laboratory Data Attestation: I reviewed the patient's lab results. Result diagrams: 10/15/19 05:14 10/15/19 05:14 Lab Results 10/14/19 10/14/19 10/14/19 Range/Units 20:58 20:58 20:58 WBC 5.97 (4.8-10.8) K/uL RBC 4.63 L (4.7-6.1) M/uL Hgb 14.2 (14.0-18.0) g/dL Hct 40.8 L (42-52) % MCV 88.1 (80-100) fL MCH 30.7 (25-34) pg MCHC 34.8 (32-36) g/dL RDW Std Deviation 41.8 (36.4-46.3) fL RDW Coeff of [place]pe 13.0 (11.5-14.5) % Plt Count 217 (130-400) K/uL MPV 10.5 H (7.4-10.4) fL Immature Gran % (Auto) 0.2 % Neut % (Auto) 50.3 % Lymph % (Auto) 36.9 % [place] % (Auto) 8.4 % Eos % (Auto) 3.9 % Baso % (Auto) 0.3 % Immature Gran # (Auto) 0.01 (0.00-0.02) K/uL Neut # (Auto) 3.01 (1.4-6.5) K/uL Lymph # (Auto) 2.20 (1.2-3.4) K/uL [place] # (Auto) 0.50 (0.11-0.59) K/uL Eos # (Auto) 0.23 (0-0.5) K/uL Baso # (Auto) 0.02 (0-0.2) K/uL ESR (0-14) mm/hr PT 10.0 (9.0-12.0) Seconds INR 0.9 (0.9-1.1) APTT 26.5 (21.0-31.0) Seconds PTT Ratio 0.9 Sodium 132 L (136-145) mmol/L Potassium 3.6 (3.5-5.1) mmol/L Chloride 101 (98-107) mmol/L Carbon Dioxide 23 (21-32) mmol/L Anion Gap 8.0 (3-11) BUN 6 L (7-18) mg/dl Creatinine 0.82 (0.6-1.4) mg/dl Est Cr Clr Drug Dosing 100.8 ml/min Est GFR ( Amer) 117.0 Est GFR (Non-Af Amer) 101.0 BUN/Creatinine Ratio 7.5 L (10-20) Glucose 105 H (70-99) mg/dl POC Glucose (70-99) mg/dl Calcium 8.6 (8.5-10.1) mg/dl Magnesium (1.8-2.4) mg/dl Total Bilirubin 0.3 (0.2-1) mg/dl AST 22 (15-37) U/L ALT 32 (12-78) U/L Alkaline Phosphatase 74 (45-117) U/L Troponin I < 0.015 (0-0.045) ng/ml C-Reactive Protein < 0.29 (0-0.29) mg/dl Total Protein 6.9 (6.4-8.2) gm/dl Albumin 4.0 (3.4-5.0) gm/dl Globulin 2.9 (2.5-4.0) gm/dl Albumin/Globulin Ratio 1.4 (0.9-2) Lipase 258 (73-393) U/L TSH (0.300-4.500) uIu/ml 10/14/19 10/14/19 10/14/19 Range/Units 20:58 20:58 22:08 WBC (4.8-10.8) K/uL RBC (4.7-6.1) M/uL Hgb (14.0-18.0) g/dL Hct (42-52) % MCV (80-100) fL MCH (25-34) pg MCHC (32-36) g/dL RDW Std Deviation (36.4-46.3) fL RDW Coeff of Chepe (11.5-14.5) % Plt Count (130-400) K/uL MPV (7.4-10.4) fL Immature Gran % (Auto) % Neut % (Auto) % Lymph % (Auto) % [place] % (Auto) % Eos % (Auto) % Baso % (Auto) % Immature Gran # (Auto) (0.00-0.02) K/uL Neut # (Auto) (1.4-6.5) K/uL Lymph # (Auto) (1.2-3.4) K/uL [place] # (Auto) (0.11-0.59) K/uL Eos # (Auto) (0-0.5) K/uL Baso # (Auto) (0-0.2) K/uL ESR 4 (0-14) mm/hr PT (9.0-12.0) Seconds INR (0.9-1.1) APTT (21.0-31.0) Seconds PTT Ratio Sodium (136-145) mmol/L Potassium (3.5-5.1) mmol/L Chloride (98-107) mmol/L Carbon Dioxide (21-32) mmol/L Anion Gap (3-11) BUN (7-18) mg/dl Creatinine (0.6-1.4) mg/dl Est Cr Clr Drug Dosing ml/min Est GFR ( Amer) Est GFR (Non-Af Amer) BUN/Creatinine Ratio (10-20) Glucose (70-99) mg/dl POC Glucose 85 (70-99) mg/dl Calcium (8.5-10.1) mg/dl Magnesium 2.3 (1.8-2.4) mg/dl Total Bilirubin (0.2-1) mg/dl AST (15-37) U/L ALT (12-78) U/L Alkaline Phosphatase (45-117) U/L Troponin I (0-0.045) ng/ml C-Reactive Protein (0-0.29) mg/dl Total Protein (6.4-8.2) gm/dl Albumin (3.4-5.0) gm/dl Globulin (2.5-4.0) gm/dl Albumin/Globulin Ratio (0.9-2) Lipase (73-393) U/L TSH 2.280 (0.300-4.500) uIu/ml Administered Medications Potassium Chloride/Sodium Chloride (Normal Saline W/20 Meq Kcl) 20 meq in 1,000 mls @ 60 mls/hr IV .[id number] ONE Stop: 10/15/19 17:09 Last Admin: 10/15/19 01:09 Dose: 60 mls/hr Documented by: [id number] Oxycodone HCl (Roxicodone Immediate Rel) 5 mg PO Q4H PRN PRN Reason: Pain Stop: 10/29/19 00:02 Last Admin: 10/15/19 01:51 Dose: 5 mg Documented by: [id number] Discontinued Medications Aspirin (Aspirin) 324 mg PO NOW STA Stop: 10/14/19 20:33 Last Admin: 10/14/19 20:56 Dose: 324 mg Documented by: [id number] Ioversol (Optiray 320 125ml) 119 ml IV ONCE PRN PRN Reason: Interaction Checking Stop: 10/18/19 21:49 Last Admin: 10/14/19 21:50 Dose: 119 ml Documented by: [id number] Nitroglycerin (Nitrostat) 0.4 mg SL UD PRN PRN Reason: Chest Pain Stop: 11/14/19 00:02 Last Admin: 10/15/19 01:32 Dose: 0.4 mg Documented by: [id number] Imaging Data Radiologist's Impression: CT angio neck with con HISTORY: Mental status change left sided SS TECHNIQUE: Multiaxial CT angiography of the neck was performed IV contrast: None. All measurements were calculated based on NASCET criteria. Maximum intensity projection images were also obtained. A dose lowering technique was utilized adhering to the principles of ALARA. COMPARISON STUDY: None. FINDINGS: The aortic arch and proximal great vessels are widely patent. Right carotid system demonstrates plaque formation of the proximal right internal carotid artery. Estimated narrowing is 30%. The left carotid system is unremarkable. Left vertebral artery is congenitally small. No significant superimposed stenotic process of the right vertebral vessel. Significant superimposed somatic process distally.. IMPRESSION: 1. Plaque formation right carotid system with evidence for a 30% stenosis origin right internal carotid artery. 2. Carotid system is otherwise unremarkable. 3. 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 ACT 112: Negative or not required by law. The above report was generated using voice recognition software. It may contain grammatical, syntax or spelling errors. Electronically signed by: Isaac Morataya M.D. 10/14/2019 10:16 PM Dictated: 10/14/192211 Transcribed: 10/14/192211 CT angio head w con HISTORY: Mental status change left sided SS TECHNIQUE: Multiaxial CT angiography of the head was performed IV contrast: None. Maximum intensity projection images were also obtained. A dose loweri ng technique was utilized adhering to the principles of ALARA. COMPARISON: None. FINDINGS: There is no mass, hematoma, midline shift, or acute infarct. Visualized intracranial internal carotid arteries, distal vertebral arteries, and basilar artery are widely patent. There is no significant stenosis, occlusion, or aneurysm seen within the bilateral ACAs, MCAs, or cookie breaker. IMPRESSION: No significant stenosis, occlusion, or aneurysm within the [place]. noted is made of considerable narrowing distal left vertebral artery superimposed upon a congenitally small vessel. ACT 112: Negative or not required by law. The above report was generated using voice recognition software. It may contain grammatical, syntax or spelling errors. Electronically signed by: Isaac Morataya M.D. 10/14/2019 10:18 PM Dictated: 10/14/192216 Transcribed: 10/14/192216 CT head/brain wo con CT DOSE: HISTORY: Mental status change left sided SS TECHNIQUE: Multiaxial CT images of the head were performed without the use of intravenous contrast. A dose lowering technique was utilized adhering to the principles of ALARA. Comparison: None. Findings: The paranasal sinuses and mastoid air cells are clear. The calvarium and skull base are intact. The ventricles and sulci are within normal limits. There is no mass, hematoma, midline shift, or acute infarct. Impression: No acute intracranial abnormality. ACT 112: Negative or not required by law. The above report was generated using voice recognition software. It may contain grammatical, syntax or spelling errors. Electronically signed by: Isaac Morataya M.D. 10/14/2019 10:06 PM Dictated: 10/14/192204 Transcribed: 10/14/192204 CT angio chest PE protocol CT DOSE: 1451.54 mGy.cm HISTORY: Chest pain PE TECHNIQUE: Multiaxial CT images of the chest were performed following the intravenous administration of contrast to evaluate the pulmonary arteries. Maximal intensity projection images were also obtained. A dose lowering technique was utilized adhering to the principles of ALARA. COMPARISON STUDY: None. FINDINGS: There is a normal caliber thoracic aorta with no evidence for dissection. There is no evidence for pulmonary embolus. No pleural effusions. No pneumothorax. The liver and spleen are unremarkable. No mediastinal or hilar lymphadenopathy. The central airways are patent. The lungs are clear. IMPRESSION: No evidence for pulmonary embolus. The lungs are clear. ACT 112: Negative or not required by law. The above report was generated using voice recognition software. It may contain grammatical, syntax or spelling errors. Electronically signed by: Isaac Morataya M.D. 10/14/2019 10:11 PM Dictated: 10/14/192205 Transcribed: 10/14/192205 XR chest 1V portable CLINICAL HISTORY: Chest Pain dyspnea COMPARISON STUDY: 09/10/2017 FINDINGS: The bones soft tissues and hemidiaphragms are normal. The cardiomediastinal silhouette is normal. The lungs are clear. The pulmonary vasculature is normal. IMPRESSION: Negative chest. ACT 112: Negative or not required by law. The above report was generated using voice recognition software. It may contain grammatical, syntax or spelling errors. Electronically signed by: Isaac Morataya M.D. 10/14/2019 8:46 PM Dictated: 10/14/192045 Transcribed: 10/14/192045 Blood Pressure Blood Pressure Findings: Elevated blood pressure Blood Pressure Disposition: further management by hospitalist Discharge Plan Visit Data *Final* Discharge Date/Time: 10/14/19 23:31 Chief Complaint: Chest Pain Stated Complaint: chest pain left arm numb ED Provider: Ramon Allison Discharge Problem: Chest pain, Acute left-sided weakness, Facial droop Patient Disposition: Admitted As Inpatient Condition: Good Discharge Instructions Interventions: ED Discharge Assessment Last Done: 10/14/19 23:31 Discharge Problem: Chest pain Qualifiers: Chest pain type: unspecified Qualified Code(s): R07.9 - Chest pain, unspecified
[2019-10-14 21:05] LABS: Basophils # (auto) 0.02 K/uL (0-0.2); Basophils % (auto) 0.3 %; Eosinophils # (auto) 0.23 K/uL (0-0.5); Eosinophils % (auto) 3.9 %; Hematocrit (blood only) 40.8 % (42-52); Hemoglobin 14.2 g/dL (14.0-18.0); Immature Granulocytes # (auto) 0.01 K/uL (0.00-0.02); Immature Granulocytes % (auto) 0.2 %; Lymphocytes % (auto) 36.9 %; Mean Corpuscular Hemoglobin 30.7 pg (25-34); Mean Corpuscular Hgb Conc 34.8 g/dL (32-36); Mean Corpuscular Volume 88.1 fL (80-100); Mean Platelet Volume 10.5 fL (7.4-10.4); Monocytes % (auto) 8.4 %; Neutrophils # (auto) 3.01 K/uL (1.4-6.5); Neutrophils % (auto) 50.3 %; Platelet Count 217 K/uL (130-400); RDW Standard Deviation 41.8 fL (36.4-46.3); Red Blood Count 4.63 M/uL (4.7-6.1); White Blood Count 5.97 K/uL (4.8-10.8)
[2019-10-14 21:21] LABS: Alanine Aminotransferase 32 U/L (12-78); Aspartate Aminotransferase 22 U/L (15-37); BUN Creatinine Ratio 7.5 (10-20); Blood Urea Nitrogen 6 mg/dl (7-18); Calcium 8.6 mg/dl (8.5-10.1); Carbon Dioxide 23 mmol/L (21-32); Chloride 101 mmol/L (98-107); Creatinine Clr Calc Pharmacy 100.8 ml/min; Glucose 105 mg/dl (70-99); Lipase 258 U/L (73-393); Potassium 3.6 mmol/L (3.5-5.1); Sodium 132 mmol/L (136-145)
[2019-10-14 21:24] LABS: INR 0.9 (0.9-1.1); Partial Thromboplastin Ratio 0.9; Partial Thromboplastin Time 26.5 Seconds (21.0-31.0)
[2019-10-14 21:26] LABS: Albumin Globulin Ratio 1.4 (0.9-2); Alkaline Phosphatase 74 U/L (45-117); Bilirubin,Total 0.3 mg/dl (0.2-1); Globulin 2.9 gm/dl (2.5-4.0); Total Protein 6.9 gm/dl (6.4-8.2); Troponin I < 0.015 ng/ml (0-0.045)
[2019-10-14 21:50] LABS: C Reactive Protein < 0.29 mg/dl (0-0.29)
[2019-10-14] MEDS ORDERED: OPTIRAY 320 125ml IV PRN (21:50)
--- NOTE | 2019-10-14 22:07 | CT Scan Report ---
CT head/brain wo con CT DOSE: HISTORY: Mental status change left sided SS TECHNIQUE: Multiaxial CT images of the head were performed without the use of intravenous contrast. A dose lowering technique was utilized adhering to the principles of ALARA. Comparison: None. Findings: The paranasal sinuses and mastoid air cells are clear. The calvarium and skull base are int act. The ventricles and sulci are within normal limits. There is no mass, hematoma, midline shift, or acute infarct. Impression: No acute intracranial abnormality. ACT 112: Negative or not required by law. The above report was generated using voice recognition software. It may contain grammatical, syntax or spelling errors. Electronically signed by: Isaac Morataya M.D. 10/14/2019 10:06 PM
--- NOTE | 2019-10-14 22:13 | CT Scan Report ---
CT angio chest PE protocol CT DOSE: 1451.54 mGy.cm HISTORY: Chest pain PE TECHNIQUE: Multiaxial CT images of the chest were performed following the intravenous administration of contrast to evaluate the pulmonary arteries. Maximal intensity projection images were also obtaine d. A dose lowering technique was utilized adhering to the principles of ALARA. COMPARISON STUDY: None. FINDINGS: There is a normal caliber thoracic aorta with no evidence for dissection. There is no evide nce for pulmonary embolus. No pleural effusions. No pneumothorax. The liver and spleen are unremarkab le. No mediastinal or hilar lymphadenopathy. The central airways are patent. The lungs are clear. IMPRESSION: No evidence for pulmonary embolus. The lungs are clear. ACT 112: Negative or not required by law. The above report was generated using voice recognition software. It may contain grammatical, syntax or spelling errors. Electronically signed by: Isaac Morataya M.D. 10/14/2019 10:11 PM
--- NOTE | 2019-10-14 22:17 | CT Scan Report ---
CT angio neck with con HISTORY: Mental status change left sided SS TECHNIQUE: Multiaxial CT angiography of the neck was performed IV contrast: None. All measurements w ere calculated based on NASCET criteria. Maximum intensity projection images were also obtained. A dose lowering technique was utilized adhering to the principles of ALARA. COMPARISON STUDY: None. FINDINGS: The aortic arch and proximal great vessels are widely patent. Right carotid system demonst rates plaque formation of the proximal right internal carotid artery. Estimated narrowing is 30%. The left carotid system is unremarkable. Left vertebral artery is congenitally small. No significant superimposed stenotic process of the righ t vertebral vessel. Significant superimposed somatic process distally.. IMPRESSION: 1. Plaque formation right carotid system with evidence for a 30% stenosis origin right internal carot id artery. 2. Carotid system is otherwise unremarkable. 3. 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 ACT 112: Negative or not required by law. The above report was generated using voice recognition software. It may contain grammatical, syntax or spelling errors. Electronically signed by: Isaac Morataya M.D. 10/14/2019 10:16 PM
--- NOTE | 2019-10-14 22:19 | CT Scan Report ---
CT angio head w con HISTORY: Mental status change left sided SS TECHNIQUE: Multiaxial CT angiography of the head was performed IV contrast: None. Maximum intensit y projection images were also obtained. A dose lowering technique was utilized adhering to the princ i[place]raham of DUC. COMPARISON: None. FINDINGS: There is no mass, hematoma, midline shift, or acute infarct. Visualized intracranial materials intern al carotid arteries, distal vertebral arteries, and basilar artery are widely patent. There is no sig nificant stenosis, occlusion, or aneurysm seen within the bilateral ACAs, MCAs, or administrative assistant receptionist. IMPRESSION: No significant stenosis, occlusion, or aneurysm within the [place]. noted is made of conside rable narrowing distal left vertebral artery superimposed upon a congenitally small vessel. ACT 112: Negative or not required by law. The above report was generated using voice recognition software. It may contain grammatical, syntax or spelling errors. Electronically signed by: Isaac Morataya M.D. 10/14/2019 10:18 PM
--- NOTE | 2019-10-14 23:14 | History & Physical Report ---
Date of Service October 14, 2019 Assessment & Plan (1) Acute left-sided weakness: Possible CVA Chest pain going to the left shoulder Likely musculoskeletal given reproducibility Rule out left shoulder joint pathology Hypertension, situational Chronic hyponatremia chronic back pain status post surgery focal dystonia as per records past tobacco abuse Medical telemetry Neurochecks Aspirin for secondary stroke prevention for now MRI/MRA of the brain, TTE, check lipid panel for stroke work-up Neurology consult RE left-sided weakness Plain x-ray of the left shoulder DVT prophylaxis. Lovenox subcu Full code Text document was generated using [employer] voice recognition software. It may contain grammatical or spelling errors. Kindly contact undersigned for clarification of any documentation item in question. History of Present Illness Chief Complaint: Chest pain, left arm weakness Primary Care Provider: Florencia Awan PA-C History obtained from patient and records. Medical history significant for chronic back pain status post surgery, focal dystonia as per records 3 days ago patient noted achy left-sided chest discomfort going to the left shoulder worse with motion. No unusual neck pain. No cough, no S OB. 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 At about the same time patient noted left-sided facial weakness, weakness/numbness of the left arm. No headaches. At the ER, patient aspirin for possible stroke. Medical History as above Surgical History : Back surgery, carpal tunnel surgery, ulnar nerve surgery Family History : Breast cancer, diabetes Personal/Social history : Non-smoker, occasional EtOH intake, [employer] employ ee Allergies Allergy/AdvReac Type Severity Reaction Status Date / Time cephalexin Allergy Unknown HIVES Verified 10/14/19 21:01 Home Medications Home Medications Medication Instructions Recorded Confirmed Type multivitamin 1 tab PO QAM 05/13/18 10/14/19 History ascorbic acid (vitamin C) [Vitamin 1 g PO DAILY 10/14/19 10/14/19 History C] cyclobenzaprine 5 mg PO TID PRN 10/14/19 10/14/19 History gabapentin [Neurontin] 400 mg PO QID 10/14/19 10/14/19 History mometasone 2 spray INTRANASAL DAILY 10/14/19 10/14/19 History Past Med/Surg History Medical History No significant past medical history Surgical History History of spinal fusion Family History Other Family history non-contributory Social History Preferred Language: Polish marital status: Current Living Situation: Spouse current occupational status: employed Feels Safe at Home: Yes Smoking Status: Never smoker Hx Alcohol Use: No Review of Systems Review of Systems: As per HPI, all 10 systems reviewed, all other ROS negative Physical Exam Physical Exam: GENERAL: Slightly anxious, pleasant, no respiratory distress SKIN: Normal color, warm HEENT: [place] palpebral conjunctivae, no ptosis, flattened nasolabial fold left, dry buccal mucosa NECK : Supple, no tenderness CHEST : CTA, anterior chest wall tenderness HEART : RRR, no obvious murmurs ABDOMEN: Some distention, nontender EXTREMITIES : No LE swelling, left shoulder tenderness, no other conspicuous deformities noted NEUROLOGIC : Coherent, flattened nasolabial fold left, mild pronator drift left, MMTS RUE 4/5, LUE 3/5, BLE 4/5 no other gross focality Results & Data Results & Data ([facility]) Vital Signs (Past 12 Hours) Vital Signs Temp Pulse Pulse Resp BP BP Pulse Ox 10/14/19 22:41 75 13 134/95 10/14/19 22:30 68 14 128/89 98 10/14/19 22:03 145/89 H 100 10/14/19 21:19 70 18 141/102 H 10/14/19 21:00 68 19 130/86 98 10/14/19 20:36 68 18 106/76 99 10/14/19 20:25 36.5 C 67 20 130/85 98 Laboratory Results Laboratory Results WBC 5.97 K/uL (4.8-10.8) 10/14/19 20:58 RBC 4.63 M/uL (4.7-6.1) L 10/14/19 20:58 Hgb 14.2 g/dL (14.0-18.0) 10/14/19 20:58 Hct 40.8 % (42-52) L 10/14/19 20:58 MCV 88.1 fL (80-100) 10/14/19 20:58 MCH 30.7 pg (25-34) 10/14/19 20: MCHC 34.8 g/dL (32-36) 10/14/19: RDW Std Deviation 41.8 fL (36.4-46.3) 10/14/19: RDW Coeff of [place] 13.0 % (11.5-14.5) 10/14/19: Plt Count 217 K/uL (130-400) 10/14/19: MPV 10.5 fL (7.4-10.4) H 10/14/19 20: Immature Gran % (Auto) 0.2 % 10/14/19 20: Neut % (Auto) 50.3 % 10/14/19: Lymph % (Auto) 36.9 % 10/14/19: [place] % (Auto) 8.4 % 10/14/19 20: Eos % (Auto) 3.9 % 10/14/19: Baso % (Auto) 0.3 % 10/14/19: Immature Gran # (Auto) 0.01 K/uL (0.00-0.02) 10/14/19 20: Neut # (Auto) 3.01 K/uL (1.4-6.5) 10/14/19: Lymph # (Auto) 2.20 K/uL (1.2-3.4) 10/14/19 20: [place] # (Auto) 0.50 K/uL (0.11-0.59) 10/14/19: Eos # (Auto) 0.23 K/uL (0-0.5) 10/14/19: Baso # (Auto) 0.02 K/uL (0-0.2) 10/14/19: ESR 4 mm/hr (0-14) 10/14/19: PT 10.0 Seconds (9.0-12.0) 10/14/19: INR 0.9 (0.9-1.1) 10/14/19 20: APTT 26.5 Seconds (21.0-31.0) 10/14/19: PTT Ratio 0.9 05/08/20 20:58 Sodium 132 mmol/L (136-145) L 10/14/19 20:58 Potassium 3.6 mmol/L (3.5-5.1) 10/14/19 20:58 Chloride 101 mmol/L (98-107) 10/14/19 20:58 Carbon Dioxide 23 mmol/L (21-32) 10/14/19 20:58 Anion Gap 8.0 (3-11) 10/14/19 20:58 BUN 6 mg/dl (7-18) L 10/14/19 20:58 Creatinine 0.82 mg/dl (0.6-1.4) 10/14/19 20:58 Est Cr Clr Drug Dosing 100.8 ml/min 10/14/19 20:58 Est GFR ( Amer) 117.0 10/14/19 20:58 Est GFR (Non-Af Amer) 101.0 10/14/19 20:58 BUN/Creatinine Ratio 7.5 (10-20) L 10/14/19 20:58 Glucose 105 mg/dl (70-99) H 10/14/19 20:58 POC Glucose 85 mg/dl (70-99) 10/14/19 22:08 Calcium 8.6 mg/dl (8.5-10.1) 10/14/19 20:58 Total Bilirubin 0.3 mg/dl (0.2-1) 10/14/19 20:58 AST 22 U/L (15-37) 10/14/19 20:58 ALT 32 U/L (12-78) 10/14/19 20:58 Alkaline Phosphatase 74 U/L (45-117) 10/14/19 20:58 Troponin I < 0.015 ng/ml (0-0.045) 10/14/19 20:58 C-Reactive Protein < 0.29 mg/dl (0-0.29) 10/14/19 20:58 Total Protein 6.9 gm/dl (6.4-8.2) 10/14/19 20:58 Albumin 4.0 gm/dl (3.4-5.0) 10/14/19 20:58 Globulin 2.9 gm/dl (2.5-4.0) 10/14/19 20:58 Albumin/Globulin Ratio 1.4 (0.9-2) 10/14/19 20:58 Lipase 258 U/L (73-393) 10/14/19 20:[address] head: No acute intracranial abnormality. CT Angio head: No significant stenosis, occlusion, or aneurysm within the [place]. noted is made of considerable narrowing distal left vertebral artery superimposed upon a congenitally small vessel. CT angiogram neck: 1. Plaque formation right carotid system with evidence for a 30% stenosis origin right internal carotid artery. 2. Carotid system is otherwise unremarkable. 3. 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 Chest CT: No evidence for pulmonary embolus. The lungs are clear. EKG as per my interpretation:Rate 75, NSR, normal axis, incomplete RBBB, ST depression inferior leads, LAE
[2019-10-14 23:17] LABS: Magnesium 2.3 mg/dl (1.8-2.4); Thyroid Stimulating Hormone 2.28 uIu/ml (0.300-4.500)
[2019-10-15] MEDS ORDERED: LORazepam 0.25 MG/0.5 ML VIAL IV PRN (00:03)
[2019-10-15] MEDS ORDERED: OXYCODONE HCL IR 5 MG TAB (IMMEDIATE RELEASE) PO PRN (00:03)
[2019-10-15] MEDS ORDERED: PHARMACIST DISCHARGE MED REC CONSULT PRN (00:03)
[2019-10-15] MEDS ORDERED: NITROGLYCERIN SL 0.4 MG/TAB TAB SL PRN (00:03)
[2019-10-15] MEDS ORDERED: MoRPHine SULFATE 4 MG/ML 1 ML CARP\\VIAL IV PRN (00:03)
[2019-10-15] MEDS ORDERED: PROMETHAZINE HCL 12.5 MG in SODIUM CHLORIDE 0.9% 50 ML IV PRN (00:03)
[2019-10-15] MEDS ORDERED: ACETAMINOPHEN 325 MG TAB PO PRN (00:03)
[2019-10-15] MEDS ORDERED: CYCLOBENZAPRINE HCL 10 MG TAB PO PRN (00:12)
[2019-10-15] MEDS ORDERED: NSS + 20MEQ KCL 20 MEQ/1,000 ML BAG IV ONE (00:30)
[2019-10-15 01:24] LABS: Lyme Ab IgG w/WB Rflx Negative (Negative); Lyme Ab IgM w/WB Rflx Negative (Negative)
[2019-10-15 05:56] LABS: Basophils # (auto) 0.01 K/uL (0-0.2); Basophils % (auto) 0.2 %; Eosinophils # (auto) 0.13 K/uL (0-0.5); Eosinophils % (auto) 2.6 %; Hematocrit (blood only) 42.6 % (42-52); Hemoglobin 14.6 g/dL (14.0-18.0); Immature Granulocytes # (auto) 0.01 K/uL (0.00-0.02); Immature Granulocytes % (auto) 0.2 %; Lymphocytes # (auto) 1.06 K/uL (1.2-3.4); Lymphocytes % (auto) 21.4 %; Mean Corpuscular Hgb Conc 34.3 g/dL (32-36); Mean Corpuscular Volume 87.7 fL (80-100); Mean Platelet Volume 10.5 fL (7.4-10.4); Monocytes # (auto) 0.55 K/uL (0.11-0.59); Monocytes % (auto) 11.1 %; Neutrophils % (auto) 64.5 %; Platelet Count 206 K/uL (130-400); RDW Coefficient of Variation 13.1 % (11.5-14.5); RDW Standard Deviation 41.8 fL (36.4-46.3); Red Blood Count 4.86 M/uL (4.7-6.1); White Blood Count 4.96 K/uL (4.8-10.8)
--- NOTE | 2019-10-15 06:13 | XRay Report ---
XR shoulder LT min 2V routine CLINICAL HISTORY: 53 years-old Male presenting with left shoulder pain. TECHNIQUE: Internal rotation, external rotation, Grashey views of the left shoulder were obtained. COMPARISON: None. FINDINGS: Acromioclavicular and glenohumeral joints congruent. No deformity or subluxation of the humeral head. No acute fracture or malalignment. No advanced degenerative change. No radiographic soft tissue abno rmality. IMPRESSION: No acute osseous injury. ACT 112: Negative or not required by law. Electronically signed by: Fadi Dobson M.D. 10/15/2019 6:11 AM
[2019-10-15 06:26] LABS: BUN Creatinine Ratio 6.6 (10-20); Blood Urea Nitrogen 5 mg/dl (7-18); Carbon Dioxide 25 mmol/L (21-32); Chloride 106 mmol/L (98-107); Creatinine Clr Calc Pharmacy 113.2 ml/min; Est GFR (African American) 122.7; Est GFR (Non-African American) 105.9; Glucose 101 mg/dl (70-99); Sodium 136 mmol/L (136-145)
[2019-10-15 06:31] LABS: Chol HDL Ratio 3; Cholesterol 182 mg/dl (0-200); HDL Cholesterol 53 mg/dl; LDL Cholesterol Calculated 119 mg/dl; Triglycerides 49 mg/dl (0-150); Troponin I < 0.015 ng/ml (0-0.045); VLDL Cholesterol 10 mg/dl
[2019-10-15] MEDS: GABAPENTIN 400 MG CAP PO SCH ×2 (07:55→12:32)
[2019-10-15] MEDS ORDERED: ENOXAPARIN INJ 40 MG/0.4 ML SYR SQ SCH (09:00)
[2019-10-15] MEDS ORDERED: MULTIVITAMIN TAB PO SCH (09:00)
[2019-10-15] MEDS ORDERED: FLUTICASONE PROPIONATE NA SPR 16 GM BTL SCH (09:00)
[2019-10-15] MEDS ORDERED: ASPIRIN 81 MG ECTAB PO SCH (09:00)
--- NOTE | 2019-10-15 09:47 | Neurology Consultation ---
Date of Consultation October 15, 2019 History of Present Illness Attending Physician: Rashel Gautam MD Allergies Allergy/AdvReac Type Severity Reaction Status Date / Time cephalexin Allergy Unknown HIVES Verified 10/14/19 21:01 Home Medications Home Medications Medication Instructions Recorded Confirmed Type multivitamin 1 tab PO QAM 05/13/18 10/14/19 History ascorbic acid (vitamin C) [Vitamin 1 g PO DAILY 10/14/19 10/14/19 History C] cyclobenzaprine 5 mg PO TID PRN 10/14/19 10/14/19 History gabapentin [Neurontin] 400 mg PO QID 10/14/19 10/14/19 History mometasone 2 spray INTRANASAL DAILY 10/14/19 10/14/19 History Patient History Medical History No significant past medical history Surgical History History of spinal fusion Family History Other Family history non-contributory Social History Preferred Language: Malagasy Communication Ability: Effective Medical Radiation Dosimetrist Required: No Beliefs That Will Affect Care: None marital status: Current Living Situation: Spouse and Parent Current Living Situation Comment: , mom and dad current occupational status: employed Feels Safe at Home: Yes Safety Concerns: Feels Safe At This Time Smoking Status: Never smoker Hx Alcohol Use: No Hx Substance Use: No Results & Data Vital Signs (Past 12 Hours) Vital Signs Temp Pulse Pulse Resp BP BP Pulse Ox 10/15/19 09:17 65 10/15/19 07:05 36.5 C 61 20 116/76 96 10/15/19 03:54 36.4 C L 59 L 18 117/85 97 10/15/19 00:26 36.6 C 66 18 127/82 98 10/14/19 23:30 68 17 124/85 97 10/14/19 23:00 70 16 129/94 98 10/14/19 22:41 75 13 134/95 10/14/19 22:30 68 14 128/89 98 10/14/19 22:03 145/89 H 100 Diagnostic Findings CTA head and neck: 1. Plaque formation right carotid system with evidence for a 30% stenosis origin right internal carotid artery. 2. Carotid system is otherwise unremarkable. 3. 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
--- NOTE | 2019-10-15 09:49 | Neurology Consultation ---
Date of Consultation October 15, 2019 Assessment & Plan (1) Chest pain: A 53 year old male admitted for left sided chest pain x3 days with subjective left arm numbness. On examine has mild giveway weakness in left arm. MRI brain reviewed with patient and happy to repeat there is no evidence of ac shell stroke. I do not believe this patient had a stroke or TIA. Ok to discharge from neurology standpoint. Agree with ruling out cardiac etiology. If symptoms persist will arrange EMG of the left upper extremity. Outpatient follow up with PCP. History of Present Illness Attending Physician: Rashel Gautam MD History of Present Illness A 53-year-old male with history of low back pain on gabapentin admitted for transient left sided chest pain and arm numbness. Denies Hx of similar symptoms. Symptoms have improved but left arm still feels funny. He also noted some sensory change on the anterior portion of his left leg. He is a non smoker. Works at [employer] CTA head and neck was performed and showed no high-grade stenosis or significant abnormality. MRI brain was completed this morning and shows no sign of acute stroke. TTE showed a normal EF and no shunt. Allergies Allergy/AdvReac Type Severity Reaction Status Date / Time cephalexin Allergy Unknown HIVES Verified 10/14/19 21:01 Home Medications Home Medications Medication Instructions Recorded Confirmed Type multivitamin 1 tab PO QAM 05/13/18 10/14/19 History ascorbic acid (vitamin C) [Vitamin 1 g PO DAILY 10/14/19 10/14/19 History C] cyclobenzaprine 5 mg PO TID PRN 10/14/19 10/14/19 History gabapentin [Neurontin] 400 mg PO QID 10/14/19 10/14/19 History mometasone 2 spray INTRANASAL DAILY 10/14/19 10/14/19 History Patient History Medical History No significant past medical history Surgical History History of spinal fusion Family History Other Family history non-contributory Social History Preferred Language: Maltese Communication Ability: Effective 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 Speech muffled and soft do to mask. Following commands. compehrension intact. He can repeat. Giveway weakness in left shoulder abduction. Sensation intact. INterosseous 5/5. Hip flexion is 5/5. No tremor ataxia with finger to nose. Results & Data Vital Signs (Past 12 Hours) Vital Signs Temp Pulse Pulse Resp BP BP Pulse Ox 10/15/19 09:17 65 10/15/19 07:05 36.5 C 61 20 116/76 96 10/15/19 03:54 36.4 C L 59 L 18 117/85 97 10/15/19 00:26 36.6 C 66 18 127/82 98 10/14/19 23:30 68 17 124/85 97 10/14/19 23:00 70 16 129/94 98 10/14/19 22:41 75 13 134/95 10/14/19 22:30 68 14 128/89 98 10/14/19 22:03 145/89 H 100 Diagnostic Findings MRI brain: No acute intracranial process. (1) Chest pain Chest pain type: unspecified Qualified Code(s): R07.9 - Chest pain, unspecified
--- NOTE | 2019-10-15 10:29 | Magnetic Resonance Report ---
MR brain wo con CLINICAL HISTORY: 53 years-old Male presenting with cva, left arm weakness, negative head CT. TECHNIQUE: Multisequence, multiplanar MR imaging of the brain was performed without the use of intrav enous contrast. IV contrast: None. COMPARISON: Head CT performed earlier today. FINDINGS: Localizer images: Unremarkable. Bone marrow signal intensity within the calvarium within normal limits. Normal midline sagittal structures. Ventricles and sulci normal in size. No mass effect or midline sh ift. No restricted diffusion or hemorrhage. Brain parenchyma normal in appearance with preserved dorado -white differentiation. No extra-axial fluid collection. T2 skull base flow voids preserved. IMPRESSION: 1. No acute intracranial abnormality. ACT 112: Negative or not required by law. Electronically signed by: Fadi Dobson M.D. 10/15/2019 10:28 AM
--- NOTE | 2019-10-15 10:43 | Magnetic Resonance Report ---
MR angio head wo con CLINICAL HISTORY: 53 years-old Male presenting with left arm weakness, concern for stroke, negative C T head. TECHNIQUE: MR angiography of the head was performed without the use of intravenous contrast using 3-D [id number] technique. 3-D volumetric and/or maximum intensity projection (MIP) images were subse quently reconstructed for review. IV contrast: None. COMPARISON: CT head performed earlier the same day. FINDINGS: Localizer images: Unremarkable. Anterior circulation: Intracranial portions of the internal carotid arteries patent to the level of t he termini. Anterior cerebral arteries patent. Middle cerebral arteries patent. Anterior communicatin g artery patent. Posterior circulation: Right dominant vertebral artery. The left vertebral artery terminates as the l eft posterior inferior cerebellar artery. Intradural portions of the vertebral arteries patent. Poste rior inferior cerebellar arteries patent. Anterior inferior cerebellar arteries poorly visualized. Gann perior cerebellar arteries patent. Basilar artery patent though there is a focal vessel narrowing bey ond the origins of the superior cerebellar arteries. This likely relates to the prominent posterior c ommunicating arteries supplying the majority of the posterior cerebral artery vascular flow and hypop lastic P1 segments of the posterior cerebral arteries. or near origin of the left posteri or cerebral artery. Both posterior cerebral arteries are patent. Posterior communicating arteries pat ent. IMPRESSION: 1. No significant stenosis, aneurysm, or focal vessel occlusion. ACT 112: Negative or not required by law. Electronically signed by: Fadi Dobson M.D. 10/15/2019 10:42 AM
--- NOTE | 2019-10-15 16:20 | Hospitalist Progress Note ---
Date of Service October 15, 2019 Assessment & Plan (1) Acute left-sided weakness: Present on admission with left upper extremity weakness and shoulder pain with movement Pt said that he has been painted his shed for about [address] head showed no acute intracranial abnormality. CTA head and neck showed no acute intracranial abnormality MRI head showed no acute intracranial abnormality. MRA head showed no significant stenosis, aneurysm, or focal vessel occlusion. Neurology on board Doubt if his LUE weakness symptoms was related to stroke or TIA ECHO done showed no wall motion abnormality and no evidence of interatrial shunt. EF 55 to 60% Has been walking in the hallway with PT Continue aspirin 81 mg Ok from neurology standpoint to discharge home Follow up with neurology outpatient if symptoms continue to arrange for an EMG of the left upper extremity. Chest pain Pain reproducible and worsening with movement of LUE Mostly due to musculoskeletal since pt has been painted his shed for a week Troponin x3 negative ECHO showed no wall motion abnormality with EF 55 to 60% Left shoulder xray showed no acute osseous injury. CTA chest showed no evidence for pulmonary embolus. The lungs are clear. Continue aspirin 81 mg continue pain managament with Tylenol and NSAIDs Hypertension BP stable DVT Px on Lovenox subcu CODE STATUS Full code Admission and Anticipated Discharge Date Admission Date: October 14, 2019 Subjective Pt was seen and examined Lying in bed with no distress Pt said that he feels fine He said that his symptoms improves significantly Pt would like to go home because he said that he feels ok Denies any chest pain, palpitation, dizziness and SOB Physical Exam Physical Exam: General- No acute distress Head- atraumatic Eyes- PERRL, EOMI, ENT- oropharynx clear Neck- supple, no JVD Lungs- clear to auscultation Heart- regular rhythm; no murmur Abdomen- normal bowel sounds, soft, nontender Extremities- no calf tenderness Neuro- alert, oriented x 3; PERRL, EOMI; no facial palsy; no dysarthria Skin- warm & dry Results & Data Results & Data ([facility]) Vital Signs (Past 12 Hours) Vital Signs Temp Pulse Pulse Resp BP Pulse Ox 10/15/19 15:49 36.5 C 70 18 117/74 95 10/15/19 15:08 67 10/15/19 12:16 36.6 C 67 20 114/76 97 10/15/19 09:17 65 10/15/19 07:05 36.5 C 61 20 116/76 96
--- NOTE | 2019-10-15 18:20 | Discharge Summary ---
Date of Service October 15, 2019 Admission HPI Per Admitting Provider History obtained from patient and records. Medical history significant for chronic back pain status post surgery, focal dystonia as per records 3 days ago patient noted achy left-sided chest discomfort going to the left shoulder worse with motion. No unusual neck pain. No cough, no S OB. 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 At about the same time patient noted left-sided facial weakness, weakness /numbness of the left arm. No headaches. At the ER, patient aspirin for possible stroke. Medical History as above Surgical History : Back surgery, carpal tunnel surgery, ulnar nerve surgery Family History : Breast cancer, diabetes Personal/Social history : Non-smoker, occasional EtOH intake, [employer] employee Admission Exam Per Admitting Provider GENERAL: Slightly anxious, pleasant, no respiratory distress SKIN: Normal color, warm HEENT: [place] palpebral conjunctivae, no ptosis, flattened nasolabial fold left, dry buccal mucosa NECK : Supple, no tenderness CHEST : CTA, anterior chest wall tenderness HEART : RRR, no obvious murmurs ABDOMEN: Some distention, nontender EXTREMITIES : No LE swelling, left shoulder tenderness, no other conspicuous deformities noted NEUROLOGIC : Coherent, flattened nasolabial fold left, mild pronator drift left, MMTS RUE 4/5, LUE 3/5, BLE 4/5 no other gross focality Principal Diagnosis Acute left-sided weakness: Chest pain Elevated Blood pressure Discharge Exam General- No acute distress Head- atraumatic Eyes- PERRL, EOMI, ENT- oropharynx clear Neck- supple, no JVD Lungs- clear to auscultation Heart- regular rhythm; no murmur Abdomen- normal bowel sounds, soft, nontender Extremities- no calf tenderness Neuro- alert, oriented x 3; PERRL, EOMI; no facial palsy; no dysarthria Skin- warm & dry Discharge Data Allergies Allergy/AdvReac Type Severity Reaction Status Date / Time cephalexin Allergy Unknown HIVES Verified 10/14/19 21:01 Consultations 10/14/19 22:39 ED Decision to Admit Stat 10/15/19 00:03 Consult Case Management - Discharge Planning Routine Consult Neurology Routine Ordered Studies 10/14/19 21:14 CT angio chest PE protocol Stat CT angio head w con Stat CT angio neck with con Stat CT head/brain wo con Stat 10/15/19 00:03 MR angio head wo con Routine MR brain wo con Routine XR chest 1V portable CLINICAL HISTORY: Chest Pain dyspnea COMPARISON STUDY: 09/10/2017 FINDINGS: The bones soft tissues and hemidiaphragms are normal. The cardiomediastinal silhouette is normal. The lungs are clear. The pulmonary vasculature is normal. IMPRESSION: Negative chest. ACT 112: Negative or not required by law. The above report was generated using voice recognition software. It may contain grammatical, syntax or spelling errors. Electronically signed by: Isaac Morataya M.D. 10/14/2019 8:46 PM Dictated: 10/14/192045 Transcribed: 10/14/192045 CT angio chest PE protocol CT DOSE: 1451.54 mGy.cm HISTORY: Chest pain PE TECHNIQUE: Multiaxial CT images of the chest were performed following the intravenous administration of contrast to evaluate the pulmonary arteries. Maximal intensity projection images were also obtained. A dose lowering techniq ue was utilized adhering to the principles of ALARA. COMPARISON STUDY: None. FINDINGS: There is a normal caliber thoracic aorta with no evidence for dissection. There is no evidence for pulmonary embolus. No pleural effusions. No pneumothorax. The liver and spleen are unremarkable. No mediastinal or hilar lymphadenopathy. The central airways are patent. The lungs are clear. IMPRESSION: No evidence for pulmonary embolus. The lungs are clear. ACT 112: Negative or not required by law. The above report was generated using voice recognition software. It may contain grammatical, syntax or spelling errors. Electronically signed by: Isaac Morataya M.D. 10/14/2019 10:11 PM Dictated: 10/14/192205 Transcribed: 10/14/192205 CT head/brain wo con CT DOSE: HISTORY: Mental status change left sided SS TECHNIQUE: Multiaxial CT images of the head were performed without the use of intravenous contrast. A dose lowering technique was utilized adhering to the principles of ALARA. Comparison: None. Findings: The paranasal sinuses and mastoid air cells are clear. The calvarium and skull base are intact. The ventricles and sulci are within normal limits. There is no mass, hematoma, midline shift, or acute infarct. Impression: No acute intracranial abnormality. ACT 112: Negative or not required by law. The above report was generated using voice recognition software. It may contain grammatical, syntax or spelling errors. Electronically signed by: Isaac Morataya M.D. 10/14/2019 10:06 PM Dictated: 10/14/192204 Transcribed: 10/14/192204 CT angio head w con HISTORY: Mental status change left sided SS TECHNIQUE: Multiaxial CT angiography of the head was performed IV contrast: None. Maximum intensity projection images were also obtained. A dose lowering technique was utilized adhering to the principles of ALARA. COMPARISON: None. FINDINGS: There is no mass, hematoma, midline shift, or acute infarct. Visualized intracranial internal carotid arteries, distal vertebral arteries, and basilar artery are widely patent. There is no significant stenosis, occlusion, or aneurysm seen within the bilateral ACAs, MCAs, or equal opportunity specialist. IMPRESSION: No significant stenosis, occlusion, or aneurysm within the [place] of [place]. noted is made of considerable narrowing distal left vertebral artery superimposed upon a congenitally small vessel. ACT 112: Negative or not required by law. The above report was generated using voice recognition software. It may contain grammatical, syntax or spelling errors. Electronically signed by: Isaac Morataya M.D. 10/14/2019 10:18 PM Dictated: 10/14/192216 Transcribed: 10/14/192216 CT angio neck with con HISTORY: Mental status change left sided SS TECHNIQUE: Multiaxial CT angiography of the neck was performed IV contrast: None. All measurements were calculated based on NASCET criteria. Maximum intensity projection images were also obtained. A dose lowering technique was utilized adhering to the principles of ALARA. COMPARISON STUDY: None. FINDINGS: The aortic arch and proximal great vessels are widely patent. Right carotid system demonstrates plaque formation of the proximal right internal car otid artery. Estimated narrowing is 30%. The left carotid system is unremarkable. Left vertebral artery is congenitally small. No significant superimposed stenotic process of the right vertebral vessel. Significant superimposed somatic process distally.. IMPRESSION: 1. Plaque formation right carotid system with evidence for a 30% stenosis origin right internal carotid artery. 2. Carotid system is otherwise unremarkable. 3. 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 ACT 112: Negative or not required by law. The above report was generated using voice recognition software. It may contain grammatical, syntax or spelling errors. Electronically signed by: Isaac Morataya M.D. 10/14/2019 10:16 PM Dictated: 10/14/192 Transcribed: 10/14/19 2212 XR shoulder LT min 2V routine CLINICAL HISTORY: 53 years-old Male presenting with left shoulder pain. TECHNIQUE: Internal rotation, external rotation, Grashey views of the left shoulder were obtained. COMPARISON: None. FINDINGS: Acromioclavicular and glenohumeral joints congruent. No deformity or subluxation of the humeral head. No acute fracture or malalignment. No advanced degenerative change. No radiographic soft tissue abnormality. IMPRESSION: No acute osseous injury. ACT 112: Negative or not required by law. Electronically signed by: Fadi Dobson M.D. 10/15/2019 6:11 AM Dictated: 10/15/19 0611 Transcribed: 10/15/19 06 MR brain wo con CLINICAL HISTORY: 53 years-old Male presenting with cva, left arm weakness, negative head CT. TECHNIQUE: Multisequence, multiplanar MR imaging of the brain was performed without the use of intravenous contrast. IV contrast: None. COMPARISON: Head CT performed earlier today. FINDINGS: Localizer images: Unremarkable. Bone marrow signal intensity within the calvarium within normal limits. Normal midline sagittal structures. Ventricles and sulci normal in size. No mass effect or midline shift. No restricted diffusion or hemorrhage. Brain parenchyma normal in appearance with preserved dorado-white differentiation. No extra-axial fluid collection. T2 skull base flow voids preserved. IMPRESSION: 1. No acute intracranial abnormality. ACT 112: Negative or not required by law. Electronically signed by: Fadi Dobson M.D. 10/15/2019 10:28 AM Dictated: 10/15/19 1025 Transcribed: 10/15/19 1025 MR angio head wo con CLINICAL HISTORY: 53 years-old Male presenting with left arm weakness, concern for stroke, negative CT head. TECHNIQUE: MR angiography of the head was performed without the use of i ntravenous contrast using 3-D [id number] technique. 3-D volumetric and/or maximum intensity projection (MIP) images were subsequently reconstructed for review. IV contrast: None. COMPARISON: CT head performed earlier the same day. FINDINGS: Localizer images: Unremarkable. Anterior circulation: Intracranial portions of the internal carotid arteries patent to the level of the termini. Anterior cerebral arteries patent. Middle cerebral arteries patent. Anterior communicating artery patent. Posterior circulation: Right dominant vertebral artery. The left vertebral artery terminates as the left posterior inferior cerebellar artery. Intradural portions of the vertebral arteries patent. Posterior inferior cerebellar arteries patent. Anterior inferior cerebellar arteries poorly visualized. Superior cerebellar arteries patent. Basilar artery patent though there is a focal vessel narrowing beyond the origins of the superior cerebellar arteries. This likely relates to the prominent posterior communicating arteries supplying the majority of the posterior cerebral artery vascular flow and hypoplastic P1 segments of the posterior cerebral arteries. or near origin of the left posterior cerebral artery. Both posterior cerebral arteries are patent. Posterior communicating arteries patent. IMPRESSION: 1. No significant stenosis, aneurysm, or focal vessel occlusion. ACT 112: Negative or not required by law. Electronically signed by: Fadi Dobson M.D. 10/15/2019 10:42 AM Dictated: 10/15/19 1030 Transcribed: 10/15/19 1030 Hospital Course (1) Acute left-sided weakness: Present on admission with left upper extremity weakness and shoulder pain with movement Pt said that he has been painted his shed for about [address] head showed no acute intracranial abnormality. CTA head and neck showed no acute intracranial abnormality MRI head showed no acute intracranial abnormality. MRA head showed no significant stenosis, aneurysm, or focal vessel occlusion. Neurology on board Doubt if his LUE weakness symptoms was related to stroke or TIA ECHO done showed no wall motion abnormality and no evidence of interatrial shunt. EF 55 to 60% Has been walking in the hallway with PT Continue aspirin 81 mg Ok from neurology standpoint to discharge home Follow up with neurology outpatient if symptoms continue to arrange for an EMG of the left upper extremity. Chest pain Pain reproducible and worsening with movement of LUE Mostly due to musculoskeletal since pt has been painted his shed for a week Troponin x3 negative ECHO showed no wall motion abnormality with EF 55 to 60% Left shoulder xray showed no acute osseous injury. CTA chest showed no evidence for pulmonary embolus. The lungs are clear. Continue aspirin 81 mg continue pain managament with Tylenol and NSAIDs Hypertension BP stable DVT Px on Lovenox subcu CODE STATUS Full code Total Time Total Time Spent Total Time Spent (In Minutes): 35 minutes Total Time Includes: Examination of the Patient, Discharge Planning, Medication Reconciliation, Communication With Other Providers and Other Discharge Plan Discharge Items Patient Disposition: Home - Self-Care Reason For Visit: CVA Discharge Diagnosis: Acute left-sided weakness: Chest pain Elevated Blood pressure Condition on Discharge: Good Activity: Resume your previous activity Non-emergency contact: Primary Care Provider and Neurologist Call non-emergency contact if: you have any medication questions Follow-up/Referrals: Florencia Awan PA-C [Primary Care Provider] - Diet: Heart Healthy Addtl Attending Provider Instructions: Follow up with your primary care provider Dr. Singh on 10/16 @ 10:40 AM Follow up with neurology if left upper extremity weakness persists to arrange for an EMG If symptoms reoccur or worsening, please seek medical attention Pending Studies at Discharge: No Stand-Alone Forms: My [employer], Smoking Cessation Medications and DC Order Prescriptions: New aspirin 81 mg Tablet,Delayed Release (Dr/Ec) 81 mg PO QAM Qty: 30 RF: 0 Continued multivitamin Tablet 1 tab PO QAM RF: 0 ascorbic acid (vitamin C) [Vitamin C] 1,000 mg Tablet 1 g PO DAILY RF: 0 gabapentin [Neurontin] 400 mg capsule 400 mg PO QID RF: 0 mometasone 50 mcg/actuation spray,non-aerosol 2 spray INTRANASAL DAILY RF: 0 cyclobenzaprine 5 mg tablet 5 mg PO TID PRN (Reason: Muscle Spasm) RF: 0 Discharge Orders: Discharge Order (Routine); Ordered 10/15/19 Ordered By: Rashel Gautam Admission Data Admit Date/Time: 10/14/19 23:09 Attending Provider: Rashel Gautam Admit Provider: James Madrid Primary Care Provider: Florencia Awan Other Providers: James Madrid ; Merry Rodriguez John E ; Merry Allen ; Izaiah Chahal Other Interventions: Discharge Summary Assessment (RN) Last Done: 10/15/19 16:37 DC Date/Time DO NOT enter until pt leaves facility: 10/15/19 17:36
--- NOTE | 2019-10-15 21:54 | Electrocardiogram Report ---
Test Reason : Blood Pressure : / mmHG Vent. Rate : 075 BPM Atrial Rate : 075 BPM P-R Int : 162 ms QRS Dur : 094 ms QT Int : 374 ms P-R-T Axes : 063 009 019 degrees QTc Int : 417 ms Normal sinus rhythm Possible Left atrial enlargement Borderline ECG When compared with ECG of 10-SEP-2017 19:45, No significant change was found Confirmed by Davian Brunner ([id number]) on 10/15/2019 9:53:41 PM Referred By: REFERRED SELF Confirmed By:Davian Brunner
--- NOTE | 2019-10-15 21:55 | Electrocardiogram Report ---
Test Reason : Blood Pressure : / mmHG Vent. Rate : 082 BPM Atrial Rate : 082 BPM P-R Int : 170 ms QRS Dur : 082 ms QT Int : 356 ms P-R-T Axes : 052 002 020 degrees QTc Int : 415 ms Normal sinus rhythm Possible Left atrial enlargement Borderline ECG When compared with ECG of 14-OCT-2019 20:34, No significant change was found Confirmed by Davian Brunner ([id number]) on 10/15/2019 9:55:43 PM Referred By: REFERRED SELF Confirmed By:Davian Brunner
--- NOTE | 2019-10-15 22:01 | Electrocardiogram Report ---
Test Reason : Blood Pressure : / mmHG Vent. Rate : 058 BPM Atrial Rate : 058 BPM P-R Int : 170 ms QRS Dur : 084 ms QT Int : 396 ms P-R-T Axes : 030 029 049 degrees QTc Int : 388 ms Sinus bradycardia Nonspecific ST abnormality When compared with ECG of 14-OCT-2019 20:34, No significant change was found Confirmed by Davian Brunner ([id number]) on 10/15/2019 10:01:24 PM Referred By: REFERRED SELF Confirmed By:Davian Brunner
== END 2019-10-15 17:36 | disposition home or self-care (01) ==
LOC: ED 20:23 → 2W 23:09 → INTOOBSV 23:09 → 2W 23:31